=== PATIENT | male | born 1935 | race Caucasian/White ===

== ENCOUNTER 2019-06-05 05:03 | Inpatient (IN) | payer MEDICARE, MEDICAID ==
[~2019-06-05] VITALS: Ht 167.6 cm; Wt 74.5 kg
[2019-06-05] MEDS ORDERED: ONDANSETRON HCL 4 MG/2 ML VIAL IV ONE (06:30)
[2019-06-05 06:38] LABS: Basophils # (auto) 0 10 ^3/uL (0-0.2); Basophils % (auto) 0.5 % (0.0-2.0); Eosinophils # (auto) 0.3 10 ^3/uL (0-0.8); Eosinophils % (auto) 3.9 % (0.0-7.0); Hematocrit 52.1 % (41.0-53.0); Hemoglobin 17.5 g/dL (13.5-17.5); Lymphocytes # (auto) 1.5 10 ^3/uL (0.4-5.4); Lymphocytes % (auto) 16.7 % (10.0-50.0); Mean Corpuscular Hemoglobin 33.5 pg (28.0-32.0); Mean Corpuscular Hgb Conc. 33.6 g/dL (32.0-36.0); Mean Corpuscular Volume 99.7 fL (80.0-100.0); Monocytes # (auto) 0.7 10 ^3/uL (0-1.3); Monocytes % (auto) 8.4 % (0.0-12.0); Neutrophils # (auto) 6.2 10 ^3/uL (1.6-8.6); Neutrophils % (auto) 70.5 % (37.0-80.0); Platelet Count (auto) 281 10^3/uL (140-450); Red Blood Cells 5.23 10^6/uL (4.5-5.90); White Blood Cell 8.8 10^3/uL (4.4-10.8)
[2019-06-05 06:56] LABS: Chloride 105 mmol/L (98-107); Potassium 3.7 mmol/L (3.5-5.1); Sodium 137 mmol/L (136-145)
[2019-06-05 06:59] LABS: Lactic Acid w/Reflex 3.1 mmol/L (0.4-2.0)
[2019-06-05 07:02] LABS: Alanine Aminotransferase 28 U/L (16-61); Albumin 3.9 g/dL (3.4-5.0); Anion Gap 7 (5-15); Aspartate Aminotransferase 17 U/L (15-37); Blood Urea Nitrogen 16 mg/dL (7-18); Carbon Dioxide 25 mmol/L (21-32); GFR African American 92 mL/min; GFR Non-African American 76 mL/min; Glucose 189 mg/dL (74-106); Magnesium 2.5 mg/dL (1.6-2.6)
[2019-06-05 07:07] LABS: Alkaline Phosphatase 81 U/L (45-117); Bilirubin, Total 0.6 mg/dL (0.2-1.0)
[2019-06-05] MEDS ORDERED: PROCHLORPERAZINE EDISYLATE 5 MG/ML 2ML VIAL IV ONE ×2 (07:30→10:30)
[2019-06-05 09:39] LABS: Urine Bacteria NONE SEEN /hpf (None Seen); Urine Blood Negative /uL (Negative); Urine Specific Gravity 1.019 (1.001-1.035); Urine WBC 1 /hpf (0 - 3)
[2019-06-05] MEDS ORDERED: PROCHLORPERAZINE EDISYLATE 5 MG/ML 2ML VIAL ONE (10:02)
[2019-06-05 10:26] LABS: Lactic Acid w/Reflex 2.8 mmol/L (0.4-2.0)
[2019-06-05] MEDS ORDERED: TAMSULOSIN HYDROCHLORIDE 0.4 MG CAP PO ONE (13:00)
[2019-06-05] MEDS ORDERED: MECLIZINE HCL 25 MG TAB PO ONE (13:00)
[2019-06-05] MEDS ORDERED: cefTRIAXone 1GM/50ML D5W 50 ML IV ONE (13:00)
[2019-06-05] MEDS ORDERED: NITROGLYCERIN 0.4 MG SL TAB SL PRN (13:30)
[2019-06-05] MEDS ORDERED: ONDANSETRON HCL 4 MG/2 ML VIAL IV PRN (13:30)
[2019-06-05] MEDS ORDERED: ACETAMINOPHEN 500 MG TAB PO PRN (13:30)
[2019-06-05] MEDS ORDERED: MORPHINE SULF INJ 2 MG/ML SYRINGE 1ML IV PRN ×2 (13:30)
[2019-06-05] MEDS ORDERED: HYDROcodone-ACET 5/325MG TAB PO PRN (13:30)
[2019-06-05] MEDS: SODIUM CHLORIDE 0.9% 1,000 ML IV SCH ×2 (15:30→23:49)
[2019-06-05 16:01] VITALS: BP 143/84
[2019-06-05] MEDS ORDERED: ASCO500T11 PO (16:20)
[2019-06-05] MEDS ORDERED: TURM1TAB PO (16:20)
[2019-06-05] MEDS ORDERED: OMEG100062 PO (16:20)
[2019-06-05] MEDS ORDERED: SELE200T23 OR (16:20)
[2019-06-05] MEDS ORDERED: CHOL20007 PO (16:20)
[2019-06-05] MEDS ORDERED: CARI100T PO (16:20)
[2019-06-05] MEDS ORDERED: KRIL1000 PO (16:20)
[2019-06-05 17:00] VITALS: BP 123/66
[2019-06-05 20:00] VITALS: BP 143/74
[2019-06-06 04:00] VITALS: BP 145/88
[2019-06-06 09:00] VITALS: BP 132/81
[2019-06-06] MEDS: SODIUM CHLORIDE 0.9% 1,000 ML IV SCH ×2 (09:52→14:49)
[2019-06-06] MEDS: FAMOTIDINE 20 MG TAB PO SCH (10:18)
[2019-06-06] MEDS ORDERED: LORazepam 2MG/ML-1ML VIAL IV PRN (11:30)
[2019-06-06 13:47] VITALS: BP 171/90
[2019-06-06 17:30] VITALS: BP 143/90
[2019-06-06 20:00] VITALS: BP 147/99
[2019-06-06] MEDS ORDERED: ATORVASTATIN 20 MG TAB PO SCH (22:00)
[2019-06-07] VITALS: BP 167/93
[2019-06-07] MEDS ORDERED: LABETALOL HCL 5 MG/ML 4ML SYRINGE IV ONE (03:15)
[2019-06-07] MEDS ORDERED: LABETALOL HCL 5 MG/ML ML 20ML VIAL IV ONE (03:24)
[2019-06-07 04:00] VITALS: BP 172/82
[2019-06-07 05:37] LABS: Basophils # (auto) 0 10 ^3/uL (0-0.2); Basophils % (auto) 0.5 % (0.0-2.0); Eosinophils # (auto) 0.1 10 ^3/uL (0-0.8); Eosinophils % (auto) 1.2 % (0.0-7.0); Hematocrit 50.1 % (41.0-53.0); Hemoglobin 17.2 g/dL (13.5-17.5); Lymphocytes # (auto) 1.2 10 ^3/uL (0.4-5.4); Lymphocytes % (auto) 13.6 % (10.0-50.0); Mean Corpuscular Hemoglobin 33.6 pg (28.0-32.0); Mean Corpuscular Hgb Conc. 34.4 g/dL (32.0-36.0); Mean Corpuscular Volume 97.9 fL (80.0-100.0); Monocytes # (auto) 1.4 10 ^3/uL (0-1.3); Monocytes % (auto) 15.4 % (0.0-12.0); Neutrophils # (auto) 6.3 10 ^3/uL (1.6-8.6); Neutrophils % (auto) 69.3 % (37.0-80.0); Platelet Count (auto) 290 10^3/uL (140-450); Red Blood Cells 5.12 10^6/uL (4.5-5.90); Red Cell Distribution Width 12.6 % (11.8-14.3); White Blood Cell 9.1 10^3/uL (4.4-10.8)
[2019-06-07] MEDS ORDERED: hydrALAZINE HCL 20 MG/ML VL IV ONE (06:00)
[2019-06-07 06:02] LABS: Potassium 3.1 mmol/L (3.5-5.1)
[2019-06-07 06:07] LABS: BUN/Creatinine Ratio 12.8; Calcium 8.7 mg/dL (8.5-10.1)
[2019-06-07 06:14] LABS: Cholesterol 204 mg/dL (< 200); HDL Cholesterol 52 mg/dL (40-59); LDL Cholesterol 147 mg/dL (< 100); Triglycerides 103 mg/dL (< 150)
[2019-06-07] MEDS: SODIUM CHLORIDE 0.9% 1,000 ML IV SCH ×2 (08:40→09:28)
[2019-06-07] MEDS ORDERED: HALOPERIDOL LACTATE 5 MG/ML INJ VIAL IM PRN ×2 (08:45)
[2019-06-07] MEDS ORDERED: HALOPERIDOL LACTATE 5 MG/ML INJ VIAL IM ONE (08:45)
[2019-06-07] MEDS ORDERED: CYANOCOBALAMIN (B-12) 1000 MCG/1 ML VIAL IM ONE (08:45)
[2019-06-07] MEDS: FAMOTIDINE 20 MG TAB PO SCH (09:27)
[2019-06-07] MEDS: ALPRAZolam 0.5 MG TAB PO PRN ×2 (09:28→21:11)
[2019-06-07] MEDS ORDERED: POTASSIUM CHL 20 Meq TABLET PO ONE (09:45)
[2019-06-07] MEDS ORDERED: ASPirin 81 mg TAB PO SCH (10:00)
[2019-06-07] MEDS ORDERED: hydrALAZINE HCL 20 MG/ML VL IV PRN (15:30)
[2019-06-07 16:33] LABS: Folate (Folic Acid) > 24.00 ng/mL (5.38-24)
[2019-06-07] MEDS ORDERED: TAMSULOSIN HYDROCHLORIDE 0.4 MG CAP PO ONE (17:45)
[2019-06-07 20:00] VITALS: BP 137/87
[2019-06-07] MEDS: ATORVASTATIN 20 MG TAB PO SCH (21:10)
[2019-06-07] MEDS: METOPROLOL TARTRATE 25 MG TAB PO SCH (21:11)
[2019-06-08] VITALS: BP 148/67
[2019-06-08 07:40] VITALS: BP 153/82
[2019-06-08] MEDS ORDERED: ASPirin-EC 81 mg tab PO SCH (10:00)
[2019-06-08] MEDS: ASPirin 81 mg TAB PO SCH (10:01)
[2019-06-08] MEDS: FAMOTIDINE 20 MG TAB PO SCH (10:02)
[2019-06-08] MEDS: METOPROLOL TARTRATE 25 MG TAB PO SCH ×2 (10:02→21:21)
[2019-06-08] MEDS: CYANOCOBALAMIN 500 MCG TAB PO SCH (10:03)
[2019-06-08 11:40] VITALS: BP 112/67
[2019-06-08 15:40] VITALS: BP 115/64
[2019-06-08] MEDS: TAMSULOSIN HYDROCHLORIDE 0.4 MG CAP PO SCH (18:23)
[2019-06-08 20:00] VITALS: BP 127/72
[2019-06-08] MEDS: ATORVASTATIN 20 MG TAB PO SCH (21:21)
[2019-06-08] MEDS: ALPRAZolam 0.5 MG TAB PO PRN (21:21)
[2019-06-09] VITALS (16 sets, daily range): BP systolic 108–144; BP diastolic 50–99
[2019-06-09 05:54] LABS: Basophils # (auto) 0.1 10 ^3/uL (0-0.2); Basophils % (auto) 0.8 % (0.0-2.0); Eosinophils # (auto) 0.6 10 ^3/uL (0-0.8); Hematocrit 46.9 % (41.0-53.0); Hemoglobin 16.1 g/dL (13.5-17.5); Lymphocytes # (auto) 1.3 10 ^3/uL (0.4-5.4); Lymphocytes % (auto) 16.9 % (10.0-50.0); Mean Corpuscular Hemoglobin 33.7 pg (28.0-32.0); Mean Corpuscular Hgb Conc. 34.3 g/dL (32.0-36.0); Mean Corpuscular Volume 98.3 fL (80.0-100.0); Monocytes % (auto) 13.3 % (0.0-12.0); Neutrophils # (auto) 4.9 10 ^3/uL (1.6-8.6); Nucleated Red Blood Cells % 0.1 %; Platelet Count (auto) 280 10^3/uL (140-450); Red Blood Cells 4.77 10^6/uL (4.5-5.90); White Blood Cell 7.9 10^3/uL (4.4-10.8)
[2019-06-09 06:13] LABS: INR 1.07 (0.9-1.15); Partial Thromboplastin Time 27.4 sec (23.64-32.05)
[2019-06-09 06:14] LABS: Albumin 3.1 g/dL (3.4-5.0); Calcium 8.6 mg/dL (8.5-10.1); Potassium 3.9 mmol/L (3.5-5.1)
[2019-06-09 06:18] LABS: BUN/Creatinine Ratio 23.8; Bilirubin, Total 1.2 mg/dL (0.2-1.0); Total Protein 6.8 g/dL (6.4-8.2)
[2019-06-09] MEDS: METOPROLOL TARTRATE 25 MG TAB PO SCH ×2 (10:00→22:02)
[2019-06-09] MEDS ORDERED: MIDAZOLAM HCL 1MG/1ML-2 ML VIAL IV ONE (11:00)
[2019-06-09] MEDS: CYANOCOBALAMIN 500 MCG TAB PO SCH (15:06)
[2019-06-09] MEDS: ASPirin 81 mg TAB PO SCH (15:06)
[2019-06-09] MEDS: FAMOTIDINE 20 MG TAB PO SCH (15:06)
[2019-06-09] MEDS: TAMSULOSIN HYDROCHLORIDE 0.4 MG CAP PO SCH (18:02)
[2019-06-09] MEDS: ALPRAZolam 0.5 MG TAB PO PRN (22:02)
[2019-06-09] MEDS: ATORVASTATIN 20 MG TAB PO SCH (22:02)
[2019-06-10] VITALS: BP 124/69
[2019-06-10 05:50] VITALS: BP 93/51
[2019-06-10 07:46] LABS: BUN/Creatinine Ratio 22.2; Calcium 8.7 mg/dL (8.5-10.1); Potassium 4.1 mmol/L (3.5-5.1)
[2019-06-10 07:48] LABS: Bilirubin, Total 1.2 mg/dL (0.2-1.0)
[2019-06-10] MEDS: METOPROLOL TARTRATE 25 MG TAB PO SCH (10:27)
[2019-06-10] MEDS: FAMOTIDINE 20 MG TAB PO SCH (10:27)
[2019-06-10] MEDS: CYANOCOBALAMIN 500 MCG TAB PO SCH (10:27)
[2019-06-10] MEDS: ASPirin 81 mg TAB PO SCH (10:27)
[2019-06-10 12:30] VITALS: BP 137/75
[2019-06-10] MEDS ORDERED: ATOR20TA50 PO (12:43)
[2019-06-10] MEDS ORDERED: CYAN500T3 PO (12:43)
[2019-06-10] MEDS ORDERED: ASPI81CH43 PO (12:43)
[2019-06-10] MEDS ORDERED: FAM20T PO (12:43)
[2019-06-10] MEDS ORDERED: TAM04C PO (12:43)
[2019-06-10] MEDS ORDERED: MET25T PO (12:43)
[2019-06-10 14:18] VITALS: BP 150/83
[2019-06-10 17:00] VITALS: BP 124/69
[2019-06-10] MEDS: TAMSULOSIN HYDROCHLORIDE 0.4 MG CAP PO SCH (18:00)
== END 2019-06-10 18:00 | DRG 64 ==
LOC: EDBD 05:03 → ER 05:03 → TELE 05:06 → TELE-EAST 14:44 → ICU CENTRL 06-06 23:58 → DOU IN ICU 06-07 01:55 → TELE-EAST 06-10 02:17
PROVIDERS: ADMIT Nurse Practitioner Acute Care; ATTEND Internal Medicine
PROC: B246ZZ4 Ultrasonography of Right and Left Heart, Transesophageal (ICD-10-PCS; principal; 2019-06-09)
DX: I63.9 Cerebral infarction, unspecified (principal); G93.41 Metabolic encephalopathy; E87.2 Acidosis; G91.2 (Idiopathic) normal pressure hydrocephalus; N13.8 Other obstructive and reflux uropathy; K57.90 Diverticulosis of intestine, part unspecified, without perforation or abscess without bleeding; K52.9 Noninfective gastroenteritis and colitis, unspecified; N20.0 Calculus of kidney; R73.9 Hyperglycemia, unspecified; J32.4 Chronic pansinusitis; K40.20 Bilateral inguinal hernia, without obstruction or gangrene, not specified as recurrent; T68.XXXA Hypothermia, initial encounter; N40.1 Benign prostatic hyperplasia with lower urinary tract symptoms; E53.8 Deficiency of other specified B group vitamins; E78.5 Hyperlipidemia, unspecified; R33.8 Other retention of urine; F17.200 Nicotine dependence, unspecified, uncomplicated; G30.9 Alzheimer's disease, unspecified; F02.80 Dementia in other diseases classified elsewhere, unspecified severity, without behavioral disturbance, psychotic disturbance, mood disturbance, and anxiety; I10 Essential (primary) hypertension; Z79.899 Other long term (current) drug therapy; Z80.0 Family history of malignant neoplasm of digestive organs; Z86.73 Personal history of transient ischemic attack (TIA), and cerebral infarction without residual deficits; Z90.49 Acquired absence of other specified parts of digestive tract
CPT/HCPCS: 36415; 70450; 70551; 71045; 72125; 74176; 80048; 80053; 80061; 81001; 82247; 82607; 82746; 83036; 83605; 83690; 83735; 84132; 84154; 84443; 84484; 85025; 85610; 85652; 85730; 86141; 87040; 87804; 93005; 93306; 93312; 93886; 96361; 96365; 96375; 97163; G0378; J0696; J2250; J2405

== ENCOUNTER 2019-07-27 06:38 | Inpatient (IN) | payer MEDICARE, MEDICAID ==
[~2019-07-27] VITALS: Ht 167.6 cm; Wt 82.8 kg
[~2019-07-27 06:38] MED LIST: ASCO500T11 PO; ASPI81CH43 PO; ATOR20TA50 PO; CARI100T PO; CHOL20007 PO; CYAN500T3 PO; FAMO20TA10 PO; KRIL1000 PO; MET25T PO; OMEG100062 PO; SELE200T23 OR; TAM04C PO; TURM1TAB PO
[2019-07-27] MEDS ORDERED: SODIUM CHLORIDE 0.9% 1,000 ML IV ONE (06:58)
[2019-07-27] MEDS ORDERED: METOPROLOL TARTRATE 1MG/1ML-5ML VIAL IV ONE (07:00)
[2019-07-27] MEDS ORDERED: ASPirin 81 mg TAB PO ONE ×2 (07:00→10:30)
[2019-07-27 07:25] LABS: Basophils # (auto) 0 10 ^3/uL (0-0.2); Basophils % (auto) 0.3 % (0.0-2.0); Eosinophils # (auto) 0.1 10 ^3/uL (0-0.8); Eosinophils % (auto) 0.7 % (0.0-7.0); Hematocrit 51.1 % (41.0-53.0); Hemoglobin 17.2 g/dL (13.5-17.5); Lymphocytes # (auto) 0.8 10 ^3/uL (0.4-5.4); Lymphocytes % (auto) 6.5 % (10.0-50.0); Mean Corpuscular Hgb Conc. 33.6 g/dL (32.0-36.0); Mean Corpuscular Volume 98.1 fL (80.0-100.0); Monocytes # (auto) 1.2 10 ^3/uL (0-1.3); Monocytes % (auto) 9.3 % (0.0-12.0); Neutrophils # (auto) 10.5 10 ^3/uL (1.6-8.6); Neutrophils % (auto) 83.2 % (37.0-80.0); Nucleated Red Blood Cells % 0.1 %; Platelet Count (auto) 301 10^3/uL (140-450); Red Blood Cells 5.21 10^6/uL (4.5-5.90); White Blood Cell 12.6 10^3/uL (4.4-10.8)
[2019-07-27 07:26] LABS: Albumin 3.8 g/dL (3.4-5.0); Calcium 8.8 mg/dL (8.5-10.1); Magnesium 2.2 mg/dL (1.6-2.6); Potassium 3.6 mmol/L (3.5-5.1)
[2019-07-27 07:33] LABS: BUN/Creatinine Ratio 13.4; Bilirubin, Total 1.3 mg/dL (0.2-1.0); Total Protein 8.5 g/dL (6.4-8.2)
[2019-07-27 07:35] LABS: Urine Bacteria FEW /hpf (None Seen); Urine Blood 3+ /uL (Negative); Urine Specific Gravity 1.012 (1.001-1.035); Urine WBC 199 /hpf (0 - 3)
[2019-07-27 07:47] LABS: INR 1.01 (0.9-1.15); Partial Thromboplastin Time 25.6 sec (23.64-32.05)
[2019-07-27] MEDS ORDERED: cefTRIAXone 1GM/50ML D5W 50 ML IV ONE (10:30)
[2019-07-27] MEDS ORDERED: NITROGLYCERIN 0.4 MG SL TAB SL PRN (11:00)
[2019-07-27] MEDS ORDERED: hydrALAZINE HCL 20 MG/ML VL IV PRN (11:00)
[2019-07-27] MEDS ORDERED: MORPHINE SULF INJ 2 MG/ML SYRINGE 1ML IV PRN ×2 (11:00)
[2019-07-27] MEDS ORDERED: HEPARIN SODIUM (PORCINE) 5000 UNITS/ML 1ML VIAL IV ONE (11:00)
[2019-07-27] MEDS ORDERED: HYDROcodone-ACET 5/325MG TAB PO PRN (11:00)
[2019-07-27] MEDS ORDERED: ONDANSETRON HCL 4 MG/2 ML VIAL IV PRN ×2 (11:00→14:45)
[2019-07-27] MEDS ORDERED: ACETAMINOPHEN 500 MG TAB PO PRN (11:00)
[2019-07-27] MEDS ORDERED: NITROGLYCERIN 0.4MG/HR TOPICAL PATCH TD ONE (11:00)
[2019-07-27 12:23] LABS: CRP High Sensitivity 0.38 mg/dL (< 0.3)
[2019-07-27] MEDS ORDERED: LIDOCAINE 2%HCL (LOCAL ANESTH.) INJ 20ML MDV ONE ×2 (12:27→13:17)
[2019-07-27] MEDS ORDERED: IOHEXOL 350 MG/ML 100ML IJ ONE ×3 (12:27→13:49)
[2019-07-27] MEDS ORDERED: ANGIOMAX 250 MG VIAL IV ONE (13:28)
[2019-07-27] MEDS ORDERED: SODIUM CHL 0.9% 50 ML ONE (13:28)
[2019-07-27] MEDS ORDERED: MIDAZOLAM HCL 1MG/1ML-2 ML VIAL ONE (13:28)
[2019-07-27] MEDS ORDERED: fentaNYL CITRATE 100 MCG/2 ML VL ONE (13:28)
[2019-07-27] MEDS ORDERED: NITROGLYCERIN 0.4MG/DOSE SPRAY 4.9GM ONE (13:59)
[2019-07-27] MEDS ORDERED: TICAGRELOR 90 MG TAB ONE (14:10)
[2019-07-27] MEDS ORDERED: ASPirin 81 mg TAB ONE (14:29)
[2019-07-27] MEDS ORDERED: SODIUM CHL 0.9% 500 ML IV ONE (14:45)
--- NOTE | 2019-07-27 16:20 | NUR ---
VS on arrival BP 123/73, HR, 88, RR 20, spo2 94%. No s/s of distress/sob noted/stated. Will continue to monitor PRN. Per Pantry Chef RN patient to stay laying flat until 1720, patient instructed/aware.
--- NOTE | 2019-07-27 16:22 | NUR ---
Report received from Tanesha ANTUNEZ. BRENTON LOWE brought to bed 219B following Cardiac catheterization, on cardiac rehabilitation specialist and portable oxygen. Patient transferred to unit bed, connected to glass mould cleaner #43 and oxygen. Catheterization site assessed for any bleeding, redness or swelling. Pedal pulses on affected leg assessed for positive tissue perfusion. Patient instructed on need to notify staff immediately if any pain, burning or wetness to site, and any lower back pain. Patient educated on new cardiac medications. All questions and concerns addressed, patient verbalized understanding of all education and instruction. See notes for any further.
--- NOTE | 2019-07-27 17:20 | NUR ---
Patient able to sit up in bed. No c/o pain. No s/s of distress/sob noted/stated.
[2019-07-27] MEDS: TAMSULOSIN HYDROCHLORIDE 0.4 MG CAP PO SCH (18:03)
--- NOTE | 2019-07-27 19:40 | NUR ---
Opening Shift Note Assumed care of patient, awake, AAOx4, No S/S of distress/SOB or pain. On room air and ambulatory. Bed in lowest locked position, side rails up x2, call light within reach. Instructed on POC and to call for assist PRN, will continue to monitor for changes Q1hr and PRN.
[2019-07-27 20:00] VITALS: BP 131/80
[2019-07-27 21:51] VITALS: BP 131/80
[2019-07-27] MEDS: TICAGRELOR 90 MG TAB PO SCH (21:54)
[2019-07-27] MEDS: ATORVASTATIN 20 MG TAB PO SCH (21:56)
[2019-07-27] MEDS: METOPROLOL TARTRATE 25 MG TAB PO SCH (21:56)
[2019-07-28 05:00] VITALS: BP 104/71
[2019-07-28 05:54] LABS: Basophils # (auto) 0 10 ^3/uL (0-0.2); Basophils % (auto) 0.3 % (0.0-2.0); Eosinophils # (auto) 0.1 10 ^3/uL (0-0.8); Eosinophils % (auto) 0.6 % (0.0-7.0); Hematocrit 45.2 % (41.0-53.0); Hemoglobin 15.3 g/dL (13.5-17.5); Lymphocytes # (auto) 1.1 10 ^3/uL (0.4-5.4); Lymphocytes % (auto) 11.7 % (10.0-50.0); Mean Corpuscular Hemoglobin 33.2 pg (28.0-32.0); Mean Corpuscular Hgb Conc. 33.9 g/dL (32.0-36.0); Mean Corpuscular Volume 97.9 fL (80.0-100.0); Monocytes # (auto) 1.7 10 ^3/uL (0-1.3); Monocytes % (auto) 17.5 % (0.0-12.0); Neutrophils # (auto) 6.7 10 ^3/uL (1.6-8.6); Neutrophils % (auto) 69.9 % (37.0-80.0); Nucleated Red Blood Cells % 0.1 %; Platelet Count (auto) 290 10^3/uL (140-450); Red Blood Cells 4.62 10^6/uL (4.5-5.90); Red Cell Distribution Width 13.3 % (11.8-14.3); White Blood Cell 9.6 10^3/uL (4.4-10.8)
[2019-07-28 06:07] LABS: INR 1.14 (0.9-1.15); Partial Thromboplastin Time 29.2 sec (23.64-32.05)
[2019-07-28 06:09] LABS: Potassium 3.2 mmol/L (3.5-5.1)
[2019-07-28 06:20] LABS: Bilirubin, Total 1.7 mg/dL (0.2-1.0); Calcium 8.4 mg/dL (8.5-10.1); Total Protein 6.8 g/dL (6.4-8.2)
--- NOTE | 2019-07-28 07:45 | NUR ---
OPENING NOTE ASSUMED CARE OF PT. ALERT AND ORIENTED. NO S/S OF SOB/DISTRESS NOTED. BED SET TO LOWEST POSITION/LOCKED. BEDSIDE RAILS UP X2. CALL LIGHT WITHIN REACH. INSTRUCTED PT TO CALL FOR ASSISTANCE. PATIENT VERBALIZED UNDERSTANDING. UPDATE ON POC. WILL CONTINUE TO MONITOR Q1HR AND PRN.
[2019-07-28 09:00] VITALS: BP 133/73
[2019-07-28] MEDS: LISINOPRIL 10 MG TAB PO SCH (09:33)
[2019-07-28] MEDS: FAMOTIDINE 20 MG TAB PO SCH (09:34)
[2019-07-28] MEDS: TICAGRELOR 90 MG TAB PO SCH ×2 (09:34→23:11)
[2019-07-28] MEDS: METOPROLOL TARTRATE 25 MG TAB PO SCH ×2 (09:34→23:11)
[2019-07-28] MEDS: ASPirin-EC 81 mg tab PO SCH (09:34)
[2019-07-28] MEDS: NITROGLYCERIN 0.4MG/HR TOPICAL PATCH TD SCH (09:36)
[2019-07-28] MEDS ORDERED: cefTRIAXone 1GM/50ML D5W 50 ML IV ONE (12:15)
[2019-07-28 13:00] VITALS: BP 123/75
--- NOTE | 2019-07-28 14:13 | NUR ---
Patient is refusing IV insertion. Patient stated "you are not poking me, look at my arms." This nurse educated patient on the risk and benefit. Patient verbalized understanding. Patient is still refusing. This nurse will attempt again at later time.
--- NOTE | 2019-07-28 14:47 | NUR ---
IV insertion IV access obtained, via clean sterile technique by inserting 22 gauge catheter at right FA after 1 attempt(s). IV secured properly. No trauma to site. Patient tolerated well.
[2019-07-28 17:00] VITALS: BP 108/68
[2019-07-28] MEDS: TAMSULOSIN HYDROCHLORIDE 0.4 MG CAP PO SCH (18:45)
--- NOTE | 2019-07-28 19:20 | NUR ---
Opening Shift Note Assumed care of patient, awake and alert. No S/S of distress/SOB or pain. Machado intact, patent, draining to gravity and below level of bladder. Instructed on POC and to call for assist PRN, will continue to monitor for changes Q1hr and PRN. Bed locked in lowest position and bed rails up x2. Call light within reach.
[2019-07-28 21:52] VITALS: BP 114/66
[2019-07-28] MEDS: ATORVASTATIN 20 MG TAB PO SCH (23:11)
--- NOTE | 2019-07-28 23:30 | NUR ---
Received patient from Monserrat ANTUNEZ Patient is resting in bed asleep. Machado is hung below bladder and draining yellow urine. Call light is within reach. Will continue to monitor.
[2019-07-29 05:16] VITALS: BP 120/69
--- NOTE | 2019-07-29 07:12 | NUR ---
OPENING SHIFT NOTE Assumed care of patient from douper RN. Patient is alert and oriented x4, no signs of distress noted. Patient denies pain. Patient was updated on the plan of care and verbalized understanding. Machado noted draining clear yellow urine to gravity, bag is hung below bladder level, no loops or kinks in the tubing. Bed is locked, in the lowest position, side rails up x2 and call light is in reach. Patient was encouraged to call for assistance as needed.
[2019-07-29 08:30] VITALS: BP 114/65
[2019-07-29] MEDS ORDERED: cefTRIAXone 1GM/50ML D5W 50 ML IV SCH (09:00)
--- NOTE | 2019-07-29 09:38 | NUR ---
KARIS AT BEDSIDE Updated on patient status, plan of care discussed with patient and he verbalized understanding.
[2019-07-29] MEDS: NITROGLYCERIN 0.4MG/HR TOPICAL PATCH TD SCH (10:00)
[2019-07-29] MEDS: METOPROLOL TARTRATE 25 MG TAB PO SCH (10:07)
[2019-07-29] MEDS: ASPirin-EC 81 mg tab PO SCH (10:07)
[2019-07-29] MEDS: FAMOTIDINE 20 MG TAB PO SCH (10:07)
[2019-07-29] MEDS: LISINOPRIL 10 MG TAB PO SCH (10:08)
[2019-07-29] MEDS: TICAGRELOR 90 MG TAB PO SCH (10:10)
[2019-07-29 12:04] VITALS: BP 116/65
--- NOTE | 2019-07-29 14:00 | NUR ---
DISCHARGE Discharge instructions given as ordered. Encourage to follow up with PMD as instructed. All questions and concerns addressed. Patient verbalized understanding. Medication reconciliation form completed and copy given to patient. IV removed with catheter intact, pressure dressing applied. Telemetry unit returned to ICU. Patient wheeled himself down to the lobby, refused help. no signs of distress noted.
== END 2019-07-29 14:00 | disposition home or self-care (01) | DRG 853 ==
LOC: EDBD 06:38 → ER 06:38 → TELE 06:39 → TELE-CENTR 16:16
PROVIDERS: ADMIT Nurse Practitioner Acute Care; ATTEND Family Medicine
PROC: B2111ZZ Fluoroscopy of Multiple Coronary Arteries using Low Osmolar Contrast (ICD-10-PCS; principal; 2019-07-27)
PROC: 027035Z Dilation of Coronary Artery, One Artery with Two Drug-eluting Intraluminal Devices, Percutaneous Approach (ICD-10-PCS; 2019-07-27)
PROC: 4A023N7 Measurement of Cardiac Sampling and Pressure, Left Heart, Percutaneous Approach (ICD-10-PCS; 2019-07-27)
PROC: B2151ZZ Fluoroscopy of Left Heart using Low Osmolar Contrast (ICD-10-PCS; 2019-07-27)
DX: A41.9 Sepsis, unspecified organism (principal); I21.4 Non-ST elevation (NSTEMI) myocardial infarction; E87.1 Hypo-osmolality and hyponatremia; N30.00 Acute cystitis without hematuria; N18.3 Chronic kidney disease, stage 3 (moderate); E11.22 Type 2 diabetes mellitus with diabetic chronic kidney disease; E78.5 Hyperlipidemia, unspecified; F03.90 Unspecified dementia, unspecified severity, without behavioral disturbance, psychotic disturbance, mood disturbance, and anxiety; I12.9 Hypertensive chronic kidney disease with stage 1 through stage 4 chronic kidney disease, or unspecified chronic kidney disease; I25.10 Atherosclerotic heart disease of native coronary artery without angina pectoris; K40.90 Unilateral inguinal hernia, without obstruction or gangrene, not specified as recurrent; K57.30 Diverticulosis of large intestine without perforation or abscess without bleeding; K21.9 Gastro-esophageal reflux disease without esophagitis; E78.00 Pure hypercholesterolemia, unspecified; E66.9 Obesity, unspecified; B95.1 Streptococcus, group B, as the cause of diseases classified elsewhere; R33.8 Other retention of urine; N40.1 Benign prostatic hyperplasia with lower urinary tract symptoms; Z68.30 Body mass index [BMI] 30.0-30.9, adult; Z79.82 Long term (current) use of aspirin; Z79.899 Other long term (current) drug therapy; Z80.0 Family history of malignant neoplasm of digestive organs; Z87.891 Personal history of nicotine dependence; Z90.49 Acquired absence of other specified parts of digestive tract; Z91.19 Patient's noncompliance with other medical treatment and regimen; Z95.5 Presence of coronary angioplasty implant and graft
CPT/HCPCS: 36415; 71045; 74176; 80053; 80061; 81001; 83735; 83880; 84154; 84443; 84484; 85025; 85610; 85730; 86141; 87040; 87086; 87088; 87186; 92928; 92929; 93005; 93458; 96361; 96365; 96367; 99152; 99153; C1874; G0378; J0696; J2250

== ENCOUNTER 2019-08-08 03:35 | Inpatient (IN) | payer MEDICARE, MEDICAID ==
[~2019-08-08] VITALS: Ht 170.2 cm; Wt 72.6 kg
[~2019-08-08 03:35] MED LIST changes: +FAM20T PO; -FAMO20TA10 PO
[2019-08-08] MEDS ORDERED: HYDROmorphone HCL 2 MG/ML VL IV ONE (04:30)
[2019-08-08] MEDS ORDERED: ONDANSETRON HCL 4 MG/2 ML VIAL IV ONE (04:30)
[2019-08-08 05:12] LABS: Urine Amorphous Crystal FEW /hpf (None Seen); Urine Bacteria FEW /hpf (None Seen); Urine Blood 3+ /uL (Negative); Urine Mucus FEW (None Seen); Urine Specific Gravity 1.007 (1.001-1.035); Urine WBC 4 /hpf (0 - 3)
[2019-08-08 06:01] LABS: Basophils # (auto) 0 10 ^3/uL (0-0.2); Basophils % (auto) 0.3 % (0.0-2.0); Eosinophils # (auto) 0.1 10 ^3/uL (0-0.8); Eosinophils % (auto) 1.3 % (0.0-7.0); Hemoglobin 16.2 g/dL (13.5-17.5); Lymphocytes # (auto) 0.7 10 ^3/uL (0.4-5.4); Lymphocytes % (auto) 5.9 % (10.0-50.0); Mean Corpuscular Hemoglobin 33.7 pg (28.0-32.0); Mean Corpuscular Hgb Conc. 34.4 g/dL (32.0-36.0); Mean Corpuscular Volume 97.9 fL (80.0-100.0); Monocytes % (auto) 8.3 % (0.0-12.0); Neutrophils % (auto) 84.2 % (37.0-80.0); Nucleated Red Blood Cells % 0.2 %; Platelet Count (auto) 328 10^3/uL (140-450); Red Cell Distribution Width 13.1 % (11.8-14.3); White Blood Cell 11.9 10^3/uL (4.4-10.8)
[2019-08-08 06:09] LABS: INR 1.06 (0.9-1.15); Partial Thromboplastin Time 26.6 sec (23.64-32.05)
[2019-08-08 06:27] LABS: Potassium 3.4 mmol/L (3.5-5.1)
[2019-08-08 06:48] LABS: Albumin 3.5 g/dL (3.4-5.0); BUN/Creatinine Ratio 15.5; Calcium 8.7 mg/dL (8.5-10.1); Total Protein 7.6 g/dL (6.4-8.2)
[2019-08-08] MEDS ORDERED: ONDANSETRON HCL 4 MG/2 ML VIAL IV PRN (07:30)
[2019-08-08] MEDS ORDERED: MORPHINE SULFATE 4 MG/ML SYR/VIAL IV PRN (07:30)
[2019-08-08] MEDS ORDERED: DOCUSATE SOD 100 MG CAP PO PRN (07:30)
[2019-08-08] MEDS ORDERED: ACETAMINOPHEN 325 MG TAB PO PRN (07:30)
[2019-08-08] MEDS ORDERED: HYDROcodone-ACET 5/325MG TAB PO PRN (07:30)
[2019-08-08] MEDS ORDERED: ASCORBIC ACID 500 MG TAB PO SCH (10:00)
[2019-08-08] MEDS ORDERED: FAMOTIDINE 20 MG TAB PO SCH (10:00)
[2019-08-08] MEDS ORDERED: CYANOCOBALAMIN 500 MCG TAB PO SCH (10:00)
[2019-08-08] MEDS ORDERED: METOPROLOL TARTRATE 25 MG TAB PO SCH (10:00)
[2019-08-08] MEDS ORDERED: CEPHALEXIN 250 MG CAP PO ONE (10:15)
[2019-08-08 10:19] VITALS: BP 137/80
[2019-08-08] MEDS ORDERED: TAMSULOSIN HYDROCHLORIDE 0.4 MG CAP PO SCH (18:00)
[2019-08-08] MEDS ORDERED: ATORVASTATIN 20 MG TAB PO SCH (22:00)
== END 2019-08-08 17:01 | disposition home or self-care (01) | DRG 696 ==
LOC: EDBD 03:35 → ER 03:40 → OVERFLOW 03:41
PROVIDERS: ADMIT Hospitalist; ATTEND Hospitalist
DX: R33.9 Retention of urine, unspecified (principal); K40.30 Unilateral inguinal hernia, with obstruction, without gangrene, not specified as recurrent; I10 Essential (primary) hypertension; I25.10 Atherosclerotic heart disease of native coronary artery without angina pectoris; E78.5 Hyperlipidemia, unspecified; K21.9 Gastro-esophageal reflux disease without esophagitis; Z90.49 Acquired absence of other specified parts of digestive tract; Z95.1 Presence of aortocoronary bypass graft; Z79.899 Other long term (current) drug therapy; Z79.82 Long term (current) use of aspirin; Z80.0 Family history of malignant neoplasm of digestive organs; Z80.41 Family history of malignant neoplasm of ovary
CPT/HCPCS: 36415; 71045; 71250; 74176; 80053; 81001; 83880; 84484; 85025; 85610; 85730; 93005; G0378; J2405

== ENCOUNTER 2019-08-08 16:14 | Emergency (ER) | payer MEDICARE, MEDICAID ==
[~2019-08-08] VITALS: Ht 167.6 cm; Wt 81.6 kg
[2019-08-08 16:27] VITALS: BP 143/86
== END 2019-08-08 17:01 | disposition home or self-care (01) ==
LOC: ER 16:14
DX: T83.098A Other mechanical complication of other urinary catheter, initial encounter (principal); N40.0 Benign prostatic hyperplasia without lower urinary tract symptoms
CPT/HCPCS: 51702

== ENCOUNTER → 2019-08-20 | Emergency (ER) | payer MEDICARE, MEDICAID ==
[~2019-08-20] VITALS: Ht 167.6 cm; Wt 79.4 kg
[2019-08-20 17:57] LABS: Urine Amorphous Crystal FEW /hpf (None Seen); Urine Bacteria NONE SEEN /hpf (None Seen); Urine Blood 3+ /uL (Negative); Urine Mucus FEW (None Seen); Urine Specific Gravity 1.006 (1.001-1.035); Urine WBC 8 /hpf (0 - 3)
[2019-08-20 20:01] VITALS: BP 137/79
== END | disposition home or self-care (01) ==
LOC: ER 16:32
DX: T83.091A Other mechanical complication of indwelling urethral catheter, initial encounter (principal); N39.0 Urinary tract infection, site not specified; I10 Essential (primary) hypertension; K21.9 Gastro-esophageal reflux disease without esophagitis; I25.10 Atherosclerotic heart disease of native coronary artery without angina pectoris; E78.5 Hyperlipidemia, unspecified; Z90.49 Acquired absence of other specified parts of digestive tract; Z79.82 Long term (current) use of aspirin; Z79.899 Other long term (current) drug therapy
CPT/HCPCS: 81001

== ENCOUNTER 2019-08-21 16:06 | Emergency (ER) | payer MEDICARE, MEDICAID ==
[~2019-08-21 16:06] MED LIST changes: -FAM20T PO; +FAMO20TA10 PO
[2019-08-21 18:49] VITALS: BP 140/82
== END 2019-08-21 19:40 | disposition home or self-care (01) ==
LOC: ER 16:06
DX: T83.018D Breakdown (mechanical) of other urinary catheter, subsequent encounter (principal); K21.9 Gastro-esophageal reflux disease without esophagitis; E78.5 Hyperlipidemia, unspecified; I10 Essential (primary) hypertension; Z90.49 Acquired absence of other specified parts of digestive tract; Z98.61 Coronary angioplasty status
CPT/HCPCS: 51702

== ENCOUNTER 2019-08-22 20:45 | Inpatient (IN) | payer MEDICARE, MEDICAID ==
[~2019-08-22] VITALS: Ht 165.1 cm; Wt 86.0 kg
[2019-08-22] MEDS ORDERED: cefTRIAXone 1GM/50ML D5W 50 ML IV ONE (22:30)
[2019-08-22 23:08] LABS: Basophils # (auto) 0.1 10 ^3/uL (0-0.2); Eosinophils # (auto) 0.7 10 ^3/uL (0-0.8); Eosinophils % (auto) 9.3 % (0.0-7.0); Hematocrit 43.3 % (41.0-53.0); Hemoglobin 14.5 g/dL (13.5-17.5); Lymphocytes # (auto) 1.4 10 ^3/uL (0.4-5.4); Lymphocytes % (auto) 18.4 % (10.0-50.0); Mean Corpuscular Hemoglobin 32.9 pg (28.0-32.0); Mean Corpuscular Hgb Conc. 33.4 g/dL (32.0-36.0); Mean Corpuscular Volume 98.3 fL (80.0-100.0); Monocytes # (auto) 1.2 10 ^3/uL (0-1.3); Monocytes % (auto) 15.4 % (0.0-12.0); Neutrophils # (auto) 4.4 10 ^3/uL (1.6-8.6); Neutrophils % (auto) 55.9 % (37.0-80.0); Platelet Count (auto) 293 10^3/uL (140-450); Red Cell Distribution Width 13.5 % (11.8-14.3); White Blood Cell 7.8 10^3/uL (4.4-10.8)
[2019-08-22 23:27] LABS: Albumin 3.2 g/dL (3.4-5.0); BUN/Creatinine Ratio 15.8; Calcium 8.2 mg/dL (8.5-10.1); Potassium 3.3 mmol/L (3.5-5.1)
[2019-08-22 23:30] LABS: Total Protein 7.1 g/dL (6.4-8.2)
[2019-08-23 01:06] LABS: Urine Amorphous Crystal FEW /hpf (None Seen); Urine Bacteria FEW /hpf (None Seen); Urine Blood 3+ /uL (Negative); Urine Hyaline Cast FEW /lpf (0 - 2); Urine Mucus FEW (None Seen); Urine Specific Gravity 1.006 (1.001-1.035); Urine WBC 18 /hpf (0 - 3)
[2019-08-23] MEDS ORDERED: MORPHINE SULF INJ 2 MG/ML SYRINGE 1ML IV PRN (02:00)
[2019-08-23] MEDS ORDERED: DOCUSATE SOD 100 MG CAP PO PRN (02:00)
[2019-08-23] MEDS ORDERED: HYDROcodone-ACET 5/325MG TAB PO PRN (02:00)
[2019-08-23] MEDS ORDERED: ACETAMINOPHEN 325 MG TAB PO PRN (02:00)
[2019-08-23] MEDS ORDERED: ONDANSETRON HCL 4 MG/2 ML VIAL IV PRN (02:00)
[2019-08-23] MEDS: SODIUM CHLORIDE 0.9% 1,000 ML IV SCH ×2 (02:43→17:09)
--- NOTE | 2019-08-23 03:30 | NUR ---
MS admit from ER BRENTON LOWE admitted to Med-Surg after SBAR received. Patient oriented to primary RN, unit, room, bed, and unit policies regarding patient care and visiting hours. Patient weighed by bedscale and encouraged to call if they need something. All questions and concerns addressed, patient verbalized understanding. Bed locked in lowest position and bed rails up x2. Call light within reach with wheelchair at bedside.
[2019-08-23 05:00] VITALS: BP 158/84
[2019-08-23 05:05] LABS: Basophils # (auto) 0.1 10 ^3/uL (0-0.2); Basophils % (auto) 0.9 % (0.0-2.0); Eosinophils # (auto) 0.1 10 ^3/uL (0-0.8); Eosinophils % (auto) 2.1 % (0.0-7.0); Hematocrit 46.7 % (41.0-53.0); Lymphocytes # (auto) 0.7 10 ^3/uL (0.4-5.4); Lymphocytes % (auto) 10.9 % (10.0-50.0); Mean Corpuscular Hemoglobin 32.8 pg (28.0-32.0); Mean Corpuscular Hgb Conc. 34.2 g/dL (32.0-36.0); Mean Corpuscular Volume 95.9 fL (80.0-100.0); Monocytes # (auto) 0.7 10 ^3/uL (0-1.3); Monocytes % (auto) 10.5 % (0.0-12.0); Neutrophils % (auto) 75.6 % (37.0-80.0); Nucleated Red Blood Cells % 0.1 %; Platelet Count (auto) 159 10^3/uL (140-450); Red Blood Cells 4.87 10^6/uL (4.5-5.90); Red Cell Distribution Width 14.4 % (11.8-14.3); White Blood Cell 6.6 10^3/uL (4.4-10.8)
[2019-08-23 05:28] LABS: BUN/Creatinine Ratio 18.8; Calcium 8.3 mg/dL (8.5-10.1); Potassium 3.9 mmol/L (3.5-5.1)
[2019-08-23 08:00] VITALS: BP 143/84
[2019-08-23 08:36] VITALS: BP 143/84
[2019-08-23] MEDS ORDERED: CHOLECALCIFEROL (VITD3) 1,000UNIT=25mCg TAB PO SCH (10:00)
[2019-08-23] MEDS ORDERED: ASCORBIC ACID 500 MG TAB PO SCH (10:00)
[2019-08-23] MEDS ORDERED: CYANOCOBALAMIN 500 MCG TAB PO SCH (10:00)
[2019-08-23] MEDS ORDERED: cefTRIAXone 1GM/50ML D5W 50 ML IV SCH (10:00)
[2019-08-23] MEDS ORDERED: METOPROLOL TARTRATE 25 MG TAB PO SCH (10:00)
[2019-08-23] MEDS ORDERED: ASPirin 81 mg TAB PO SCH (10:00)
[2019-08-23] MEDS ORDERED: FAMOTIDINE 20 MG TAB PO SCH (10:00)
[2019-08-23] MEDS ORDERED: PATIENTS OWN MEDICATION (Cholecalciferol (Vitamin D3) 1 TAB) PO SCH (10:00)
--- NOTE | 2019-08-23 11:27 | NUR ---
DR. GRIFFITH AT BEDSIDE. POC DISCUSSED WITH PT. NEW ORDER SURGICAL CONSULT WITH DR. SLAUGHTER FOR LARGE ABD HERNIA. WILL CARRY OUT ORDER.
[2019-08-23 13:00] VITALS: BP 159/94
--- NOTE | 2019-08-23 16:27 | NUR ---
PT B/P 173/97 HR 93, DR. CORTES MADE AWARE. NEW ORDER OBTAINED: METOPROLOL 25MG PO ONCE. WILL CARRY OUT ORDER.
[2019-08-23] MEDS ORDERED: METOPROLOL TARTRATE 25 MG TAB PO ONE (16:30)
[2019-08-23 16:39] VITALS: BP 172/97
[2019-08-23] MEDS ORDERED: TAMSULOSIN HYDROCHLORIDE 0.4 MG CAP PO SCH (18:00)
--- NOTE | 2019-08-23 19:20 | NUR ---
OPENING NOTE I WAS RECEIVING REPORT, PATIENT WAS WALKING AROUND THE UNIT ASKING TO BE DISCONNECTED FROM IV. RN WALKED THE PATIENT TO HIS ROOM AND WAS DISCONNECTED.
--- NOTE | 2019-08-23 19:30 | NUR ---
SECURITY WAS CALLED BECAUSE PATIENT WAS WALKING TO THE ELEVATOR WITH HIS WHEEL CHAIR SAYING HE WAS DONE HERE. I ASKED THE PATIENT TO PLEASE STEP OUT OF ELEVATOR BECAUSE WE DON'T HAVE A DISCHARGE ORDER, PATIENT PULLED HIS IV CATHETER FROM HIS LEFT AC, HANDED IT TO ME AND I ASKED THE PATIENT TO PLEASE PLACE IT IN THE DESIGNATED TRASH CONTAINER INSIDE HIS ROOM. PATIENT BECAME VERY AGITATED AND WAS TALKING VERY CLOSE TO MY FACE, SECURITY AND I ASKED HIS TO PLEASE KEEP A DISTANCE. CALLED HIS TO SEE IF THIS WOULD DECREASE PATIENT'S ANXIETY. EXPLAINED THE SITUATION TO THE , NOW HIS IS IN HIS ROOM ON THE PHONE.
--- NOTE | 2019-08-23 21:05 | NUR ---
Patient was in nurse station [facility], patient was asked to return to his room, he still very hostile and verbally abusive. Called his daughter and she will pick him up. Explained to daughter Daphney that patient still needs to see surgeon and urologist to address the hernia and urinary retention. Patient will be sent home with the Machado catheter.
--- NOTE | 2019-08-23 21:22 | NUR ---
Patient signed the AMA form, Daphney his daughter was waiting by the ER parking lot. I took the patient to the ER in his own wheel chair, vp security accompanied us. We waited until the patient was sitting inside the car and secured. His daughter put his wheel chair inside the trunk of her car and that is when we left and walked back inside the hospital. Patient was alert, waling with steady gate, no SOB or distress.
--- NOTE | 2019-08-23 21:29 | NUR ---
Dr Hogan was notified.
[2019-08-23] MEDS ORDERED: ATORVASTATIN 20 MG TAB PO SCH (22:00)
[2019-08-23] MEDS ORDERED: TICAGRELOR 90 MG TAB PO SCH (22:00)
[2019-08-24] MEDS ORDERED: LEVOTHYROXINE SODIUM 25 MCG TAB PO SCH (07:00)
[2019-08-24] MEDS ORDERED: TAMSULOSIN HYDROCHLORIDE 0.4 MG CAP PO SCH (18:00)
[2019-08-31] MEDS ORDERED: TICA90TA PO ×2 (13:37)
[2019-09-08] MEDS ORDERED: METO25TA5 PO ×2 (18:48)
[2019-09-08] MEDS ORDERED: LEVO25TA49 PO ×2 (18:48)
[2019-09-08] MEDS ORDERED: TICA90TA PO ×2 (18:48)
[2019-09-12] MEDS ORDERED: CLOP75TA28 PO ×2 (10:07)
[2019-09-12] MEDS ORDERED: TAM04C PO ×2 (10:07)
== END 2019-08-23 21:14 | disposition left against medical advice (07) | DRG 698 ==
LOC: ER 20:46 → OVERFLOW 20:47 → WEST WING 08-23 03:30
PROVIDERS: ADMIT Hospitalist; ATTEND Internal Medicine
DX: T83.011A Breakdown (mechanical) of indwelling urethral catheter, initial encounter (principal); N17.0 Acute kidney failure with tubular necrosis; G91.2 (Idiopathic) normal pressure hydrocephalus; R31.9 Hematuria, unspecified; I10 Essential (primary) hypertension; I25.10 Atherosclerotic heart disease of native coronary artery without angina pectoris; E78.5 Hyperlipidemia, unspecified; K21.9 Gastro-esophageal reflux disease without esophagitis; N32.0 Bladder-neck obstruction; K40.90 Unilateral inguinal hernia, without obstruction or gangrene, not specified as recurrent; N30.91 Cystitis, unspecified with hematuria; E66.9 Obesity, unspecified; N40.1 Benign prostatic hyperplasia with lower urinary tract symptoms; Z90.49 Acquired absence of other specified parts of digestive tract; Z79.899 Other long term (current) drug therapy; Z95.5 Presence of coronary angioplasty implant and graft; Z79.82 Long term (current) use of aspirin; Z68.31 Body mass index [BMI] 31.0-31.9, adult; Y92.89 Other specified places as the place of occurrence of the external cause; R33.8 Other retention of urine
CPT/HCPCS: 36415; 51702; 80048; 80053; 81001; 85025; 87086; 96365; G0378; J0696

== ENCOUNTER 2019-08-25 16:54 | Emergency (ER) | payer MEDICARE, MEDICAID ==
[~2019-08-25] VITALS: Ht 167.6 cm; Wt 77.1 kg
[2019-08-25 19:20] VITALS: BP 159/88
[2019-08-25 19:49] LABS: Urine Bacteria FEW /hpf (None Seen); Urine Blood 3+ /uL (Negative); Urine Specific Gravity 1.004 (1.001-1.035); Urine WBC 2 /hpf (0 - 3)
== END 2019-08-25 20:31 | disposition home or self-care (01) ==
LOC: ER 16:54
DX: N39.0 Urinary tract infection, site not specified (principal)
CPT/HCPCS: 81001

== ENCOUNTER → 2019-08-26 | Outpatient (CLI) | payer MEDICARE, MEDICAID ==
[~2019-08-26] MED LIST changes: +CIPR-173 PO; +FAM20T PO; -FAMO20TA10 PO; +TICA90TA PO
== END | disposition home or self-care (01) ==
LOC: Rad HDHVI 14:59
PROVIDERS: ATTEND Internal Medicine Cardiovascular Disease
DX: I05.9 Rheumatic mitral valve disease, unspecified (principal); R00.2 Palpitations
CPT/HCPCS: 93306

== ENCOUNTER 2019-08-30 16:17 | Inpatient (IN) | payer MEDICARE, MEDICAID ==
[~2019-08-30] VITALS: Ht 167.6 cm; Wt 79.3 kg
[~2019-08-30 16:17] MED LIST changes: -CIPR-173 PO; -TICA90TA PO
[2019-08-30 18:22] LABS: Urine Bacteria FEW /hpf (None Seen); Urine Blood 3+ /uL (Negative); Urine Mucus FEW (None Seen); Urine Specific Gravity 1.008 (1.001-1.035); Urine WBC 6 /hpf (0 - 3)
[2019-08-30] MEDS ORDERED: cefTRIAXone 1GM/50ML D5W 50 ML IV ONE ×2 (18:45→19:45)
[2019-08-30 19:09] LABS: Basophils # (auto) 0.1 10 ^3/uL (0-0.2); Basophils % (auto) 0.6 % (0.0-2.0); Eosinophils # (auto) 0.6 10 ^3/uL (0-0.8); Eosinophils % (auto) 6.6 % (0.0-7.0); Hemoglobin 14.5 g/dL (13.5-17.5); Lymphocytes % (auto) 10.7 % (10.0-50.0); Mean Corpuscular Hemoglobin 32.7 pg (28.0-32.0); Mean Corpuscular Hgb Conc. 33.6 g/dL (32.0-36.0); Mean Corpuscular Volume 97.3 fL (80.0-100.0); Monocytes # (auto) 1.1 10 ^3/uL (0-1.3); Monocytes % (auto) 12.4 % (0.0-12.0); Neutrophils # (auto) 6.4 10 ^3/uL (1.6-8.6); Neutrophils % (auto) 69.7 % (37.0-80.0); Platelet Count (auto) 308 10^3/uL (140-450); Red Blood Cells 4.42 10^6/uL (4.5-5.90); Red Cell Distribution Width 13.5 % (11.8-14.3); White Blood Cell 9.2 10^3/uL (4.4-10.8)
[2019-08-30 19:20] LABS: INR 1.07 (0.9-1.15); Partial Thromboplastin Time 26.9 sec (23.64-32.05)
[2019-08-30 19:23] LABS: Potassium 3.4 mmol/L (3.5-5.1)
[2019-08-30] MEDS ORDERED: MORPHINE SULF INJ 2 MG/ML SYRINGE 1ML IV PRN ×2 (19:30)
[2019-08-30] MEDS ORDERED: HYDROcodone-ACET 5/325MG TAB PO PRN (19:30)
[2019-08-30] MEDS ORDERED: ONDANSETRON HCL 4 MG/2 ML VIAL IV PRN (19:30)
[2019-08-30] MEDS ORDERED: ACETAMINOPHEN 500 MG TAB PO PRN (19:30)
[2019-08-30] MEDS ORDERED: NITROGLYCERIN 0.4 MG SL TAB SL PRN (19:30)
[2019-08-30 19:31] LABS: Albumin 3.5 g/dL (3.4-5.0); BUN/Creatinine Ratio 15.8; Bilirubin, Total 1.2 mg/dL (0.2-1.0); Calcium 8.6 mg/dL (8.5-10.1); Total Protein 7.3 g/dL (6.4-8.2)
[2019-08-30] MEDS: SODIUM CHLORIDE 0.9% 1,000 ML IV SCH (20:52)
[2019-08-30] MEDS: ATORVASTATIN 20 MG TAB PO SCH (22:20)
[2019-08-30] MEDS: DOCUSATE SOD 100 MG CAP PO SCH (22:20)
[2019-08-30] MEDS: METOPROLOL TARTRATE 25 MG TAB PO SCH (22:21)
[2019-08-31 05:03] VITALS: BP 129/59
[2019-08-31 06:02] LABS: Basophils # (auto) 0 10 ^3/uL (0-0.2); Basophils % (auto) 0.8 % (0.0-2.0); Eosinophils # (auto) 0.7 10 ^3/uL (0-0.8); Eosinophils % (auto) 11.2 % (0.0-7.0); Hemoglobin 14.5 g/dL (13.5-17.5); Lymphocytes % (auto) 16.9 % (10.0-50.0); Mean Corpuscular Hemoglobin 33.6 pg (28.0-32.0); Mean Corpuscular Hgb Conc. 34.5 g/dL (32.0-36.0); Mean Corpuscular Volume 97.5 fL (80.0-100.0); Monocytes % (auto) 16.4 % (0.0-12.0); Neutrophils # (auto) 3.3 10 ^3/uL (1.6-8.6); Neutrophils % (auto) 54.7 % (37.0-80.0); Nucleated Red Blood Cells % 0.1 %; Platelet Count (auto) 293 10^3/uL (140-450); Red Blood Cells 4.31 10^6/uL (4.5-5.90); Red Cell Distribution Width 13.4 % (11.8-14.3)
[2019-08-31 06:16] LABS: Calcium 8.3 mg/dL (8.5-10.1); Potassium 3.3 mmol/L (3.5-5.1)
[2019-08-31 06:18] LABS: BUN/Creatinine Ratio 15.6
[2019-08-31] MEDS: SODIUM CHLORIDE 0.9% 1,000 ML IV SCH ×2 (08:45→22:05)
[2019-08-31 09:03] VITALS: BP 152/72
[2019-08-31] MEDS ORDERED: CLOPIDOGREL BISULFATE 75 MG TAB PO SCH (10:00)
[2019-08-31] MEDS ORDERED: ASPirin 81 mg TAB PO SCH (10:00)
[2019-08-31] MEDS ORDERED: POTASSIUM CHL 20 Meq TABLET PO ONE (10:15)
[2019-08-31] MEDS: cefTRIAXone 1GM/50ML D5W 50 ML IV SCH (10:50)
[2019-08-31] MEDS: DOCUSATE SOD 100 MG CAP PO SCH ×2 (10:53→21:51)
[2019-08-31] MEDS: METOPROLOL TARTRATE 25 MG TAB PO SCH ×2 (10:54→21:52)
[2019-08-31] MEDS: FAMOTIDINE 20 MG TAB PO SCH (10:54)
[2019-08-31] MEDS: ASCORBIC ACID 500 MG TAB PO SCH (10:55)
[2019-08-31 10:56] LABS: Free T4 (Free Thyroxine) 1.28 ng/dL (0.89-1.76)
[2019-08-31 10:57] LABS: Folate (Folic Acid) 8.92 ng/mL (5.38-24)
[2019-08-31 13:00] VITALS: BP 154/75
[2019-08-31] MEDS ORDERED: TICA90TA PO (13:37)
[2019-08-31] MEDS ORDERED: CIPR-173 PO (13:37)
[2019-08-31 17:00] VITALS: BP 152/83
[2019-08-31] MEDS: TAMSULOSIN HYDROCHLORIDE 0.4 MG CAP PO SCH (18:02)
[2019-08-31] MEDS: ATORVASTATIN 20 MG TAB PO SCH (21:51)
[2019-08-31] MEDS ORDERED: ENOXAPARIN SOD 100 MG/1 ML SYRINGE SC SCH (22:00)
[2019-08-31 23:30] VITALS: BP 153/86
[2019-09-01 05:22] VITALS: BP 125/70
[2019-09-01] MEDS: LEVOTHYROXINE SODIUM 25 MCG TAB PO SCH (06:44)
[2019-09-01] MEDS: ENOXAPARIN SOD 80 MG/0.8ML SYRINGE SC SCH ×2 (08:30→21:06)
[2019-09-01 09:07] VITALS: BP 123/76
[2019-09-01] MEDS: cefTRIAXone 1GM/50ML D5W 50 ML IV SCH (09:13)
[2019-09-01 09:39] LABS: Basophils # (auto) 0.1 10 ^3/uL (0-0.2); Basophils % (auto) 0.9 % (0.0-2.0); Eosinophils # (auto) 0.5 10 ^3/uL (0-0.8); Eosinophils % (auto) 8.4 % (0.0-7.0); Hematocrit 43.1 % (41.0-53.0); Hemoglobin 14.7 g/dL (13.5-17.5); Lymphocytes # (auto) 0.9 10 ^3/uL (0.4-5.4); Mean Corpuscular Hemoglobin 33.5 pg (28.0-32.0); Mean Corpuscular Volume 98.5 fL (80.0-100.0); Monocytes # (auto) 0.9 10 ^3/uL (0-1.3); Monocytes % (auto) 16.3 % (0.0-12.0); Neutrophils # (auto) 3.4 10 ^3/uL (1.6-8.6); Neutrophils % (auto) 58.4 % (37.0-80.0); Platelet Count (auto) 286 10^3/uL (140-450); Red Blood Cells 4.38 10^6/uL (4.5-5.90); Red Cell Distribution Width 13.2 % (11.8-14.3); White Blood Cell 5.8 10^3/uL (4.4-10.8)
[2019-09-01] MEDS: FAMOTIDINE 20 MG TAB PO SCH (09:48)
[2019-09-01] MEDS: DOCUSATE SOD 100 MG CAP PO SCH ×2 (09:48→21:06)
[2019-09-01] MEDS: METOPROLOL TARTRATE 25 MG TAB PO SCH ×2 (09:48→21:07)
[2019-09-01] MEDS: ASCORBIC ACID 500 MG TAB PO SCH (09:48)
[2019-09-01 09:59] LABS: BUN/Creatinine Ratio 11.3; Calcium 8.4 mg/dL (8.5-10.1); Magnesium 2.5 mg/dL (1.6-2.6); Potassium 3.5 mmol/L (3.5-5.1)
[2019-09-01] MEDS: SODIUM CHLORIDE 0.9% 1,000 ML IV SCH (11:25)
[2019-09-01 13:00] VITALS: BP 127/82
[2019-09-01 17:00] VITALS: BP 141/73
[2019-09-01] MEDS: TAMSULOSIN HYDROCHLORIDE 0.4 MG CAP PO SCH (18:02)
[2019-09-01] MEDS: ATORVASTATIN 20 MG TAB PO SCH (21:06)
[2019-09-01 22:07] VITALS: BP 142/71
[2019-09-02] MEDS: SODIUM CHLORIDE 0.9% 1,000 ML IV SCH ×2 (00:37→14:05)
[2019-09-02 05:24] VITALS: BP 146/88
[2019-09-02] MEDS: LEVOTHYROXINE SODIUM 25 MCG TAB PO SCH (06:44)
[2019-09-02] MEDS: ENOXAPARIN SOD 80 MG/0.8ML SYRINGE SC SCH (08:30)
[2019-09-02] MEDS: cefTRIAXone 1GM/50ML D5W 50 ML IV SCH (08:33)
[2019-09-02 09:00] VITALS: BP 130/64
[2019-09-02] MEDS: FAMOTIDINE 20 MG TAB PO SCH (09:08)
[2019-09-02] MEDS: ASCORBIC ACID 500 MG TAB PO SCH (09:08)
[2019-09-02] MEDS: DOCUSATE SOD 100 MG CAP PO SCH (09:08)
[2019-09-02] MEDS: METOPROLOL TARTRATE 25 MG TAB PO SCH (09:11)
[2019-09-02 13:00] VITALS: BP 150/76
[2019-09-02 13:53] VITALS: BP 112/75
[2019-09-02 17:00] VITALS: BP 132/80
[2019-09-02] MEDS: TAMSULOSIN HYDROCHLORIDE 0.4 MG CAP PO SCH (18:24)
== END 2019-09-02 19:15 | DRG 699 ==
LOC: ER 16:17 → TELE 16:18 → TELE-WESTW 21:30
PROVIDERS: ADMIT Nurse Practitioner Acute Care; ATTEND Internal Medicine
DX: N32.0 Bladder-neck obstruction (principal); N13.8 Other obstructive and reflux uropathy; T83.511A Infection and inflammatory reaction due to indwelling urethral catheter, initial encounter; G91.2 (Idiopathic) normal pressure hydrocephalus; N30.01 Acute cystitis with hematuria; N40.1 Benign prostatic hyperplasia with lower urinary tract symptoms; I10 Essential (primary) hypertension; I25.10 Atherosclerotic heart disease of native coronary artery without angina pectoris; E03.9 Hypothyroidism, unspecified; K40.90 Unilateral inguinal hernia, without obstruction or gangrene, not specified as recurrent; E87.6 Hypokalemia; Y84.6 Urinary catheterization as the cause of abnormal reaction of the patient, or of later complication, without mention of misadventure at the time of the procedure; E78.5 Hyperlipidemia, unspecified; I25.2 Old myocardial infarction; Z95.5 Presence of coronary angioplasty implant and graft; Z79.82 Long term (current) use of aspirin; Z79.899 Other long term (current) drug therapy; Z80.0 Family history of malignant neoplasm of digestive organs; Z20.828 Contact with and (suspected) exposure to other viral communicable diseases
CPT/HCPCS: 36415; 80048; 80053; 81001; 82607; 82746; 83735; 84439; 84443; 85025; 85610; 85730; 87081; 87086; 96365; G0378; J0696

== ENCOUNTER 2019-09-08 11:28 | Inpatient (IN) | payer MEDICARE, MEDICAID ==
[~2019-09-08] VITALS: Ht 167.6 cm; Wt 80.8 kg
[~2019-09-08 11:28] MED LIST changes: +CIPR-173 PO; +TICA90TA PO
[2019-09-08] MEDS ORDERED: CIPROFLOXACIN 400MG/200ML 200 ML IV ONE (12:13)
[2019-09-08] MEDS ORDERED: fentaNYL CITRATE 100 MCG/2 ML VL ONE (14:26)
[2019-09-08] MEDS ORDERED: BELLADONNA ALKAL/OPIUM (16.2/30MG) RECT SUPP PR ONE (15:30)
[2019-09-08] MEDS ORDERED: hydrALAZINE HCL 20 MG/ML VL ONE (16:00)
[2019-09-08] MEDS ORDERED: ePHEDrine SULFATE 50 MG/ML AMP IV PRN (16:00)
[2019-09-08] MEDS ORDERED: fentaNYL CITRATE 100 MCG/2 ML VL IV PRN (16:00)
[2019-09-08] MEDS ORDERED: ONDANSETRON HCL 4 MG/2 ML VIAL IV PRN ×2 (16:00→17:15)
[2019-09-08] MEDS: hydrALAZINE HCL 20 MG/ML VL IV PRN (16:03)
[2019-09-08] MEDS ORDERED: traMADol HCL 50 MG TAB PO PRN (17:15)
[2019-09-08] MEDS ORDERED: NITROGLYCERIN 0.4 MG SL TAB SL PRN (17:15)
[2019-09-08] MEDS ORDERED: MORPHINE SULF INJ 2 MG/ML SYRINGE 1ML IV PRN (17:15)
[2019-09-08] MEDS ORDERED: ACETAMINOPHEN 500 MG TAB PO PRN (17:15)
[2019-09-08] MEDS ORDERED: LABETALOL HCL 5 MG/ML 4ML SYRINGE IV PRN (17:15)
[2019-09-08] MEDS ORDERED: cefTRIAXone 1GM/50ML D5W 50 ML IV ONE (17:15)
--- NOTE | 2019-09-08 17:39 | NUR ---
Telemetry admit from ER BRENTON LOWE admitted to Telemetry unit after SBAR received. Patient oriented to Abena verduzco RN, unit, room, bed, and unit policies regarding patient care and visiting hours. Instructed patient on POC, fall precautions and to call for assistance as needed. Patient verbalized understanding to all information and education. Fall precautions in place with call light within reach; bed alarm on for safety. CBI in place per MD order.
[2019-09-08 18:40] LABS: Hematocrit 45.2 % (41.0-53.0); Hemoglobin 15.3 g/dL (13.5-17.5)
[2019-09-08] MEDS ORDERED: TICA90TA PO (18:48)
[2019-09-08] MEDS ORDERED: METO25TA5 PO (18:48)
[2019-09-08] MEDS ORDERED: LEVO25TA49 PO (18:48)
--- NOTE | 2019-09-08 19:22 | NUR ---
Care endorsed to TULIO Cosme. Patient resting in bed with even and unlabored respirations, no distress noted. Fall precautions in place; bed alarm on for safety. CBI in place per MD order.
[2019-09-08] MEDS: TAMSULOSIN HYDROCHLORIDE 0.4 MG CAP PO SCH (19:24)
[2019-09-08] MEDS: SODIUM CHLORIDE 0.9% 1,000 ML IV SCH (19:24)
--- NOTE | 2019-09-08 19:40 | NUR ---
MRSA swab collected & sent to lab per MD order.
[2019-09-08] MEDS: BELLADONNA ALKAL/OPIUM (16.2/30MG) RECT SUPP PR ONE ×2 (21:00→21:43)
--- NOTE | 2019-09-08 21:00 | NUR ---
Patient refused one time order of Belladonna Alkal/Opium suppository Medication Provided patient education on the uses and side/adverse effects of the medication. Patient still refused medication. Will continue to monitor patient Q1 and PRN.
[2019-09-08] MEDS: ATORVASTATIN 20 MG TAB PO SCH (21:44)
[2019-09-08] MEDS: METOPROLOL TARTRATE 25 MG TAB PO SCH (21:44)
[2019-09-08] MEDS: FAMOTIDINE 20 MG TAB PO SCH (21:45)
[2019-09-08] MEDS: ENOXAPARIN SOD 80 MG/0.8ML SYRINGE SC SCH (21:45)
[2019-09-08 22:00] VITALS: BP 155/76
[2019-09-09 00:54] LABS: Hematocrit 42.1 % (41.0-53.0); Hemoglobin 14.2 g/dL (13.5-17.5)
[2019-09-09] MEDS: SODIUM CHLORIDE 0.9% 1,000 ML IV SCH ×3 (03:09→23:09)
[2019-09-09 05:00] VITALS: BP 130/70
[2019-09-09 06:06] LABS: Basophils # (auto) 0.1 10 ^3/uL (0-0.2); Basophils % (auto) 0.6 % (0.0-2.0); Eosinophils # (auto) 0.4 10 ^3/uL (0-0.8); Eosinophils % (auto) 5.4 % (0.0-7.0); Hematocrit 40.7 % (41.0-53.0); Lymphocytes # (auto) 1.1 10 ^3/uL (0.4-5.4); Lymphocytes % (auto) 13.4 % (10.0-50.0); Mean Corpuscular Hemoglobin 33.6 pg (28.0-32.0); Mean Corpuscular Hgb Conc. 34.4 g/dL (32.0-36.0); Mean Corpuscular Volume 97.6 fL (80.0-100.0); Monocytes # (auto) 1.2 10 ^3/uL (0-1.3); Monocytes % (auto) 15.3 % (0.0-12.0); Neutrophils # (auto) 5.2 10 ^3/uL (1.6-8.6); Neutrophils % (auto) 65.3 % (37.0-80.0); Nucleated Red Blood Cells % 0.1 %; Platelet Count (auto) 272 10^3/uL (140-450); Red Blood Cells 4.17 10^6/uL (4.5-5.90); Red Cell Distribution Width 13.2 % (11.8-14.3)
[2019-09-09 06:25] LABS: Potassium 3.7 mmol/L (3.5-5.1)
[2019-09-09 06:41] LABS: Albumin 3.1 g/dL (3.4-5.0); BUN/Creatinine Ratio 14.8; Calcium 8.1 mg/dL (8.5-10.1); Total Protein 6.7 g/dL (6.4-8.2)
[2019-09-09] MEDS: LEVOTHYROXINE SODIUM 25 MCG TAB PO SCH (07:26)
--- NOTE | 2019-09-09 07:32 | NUR ---
End of Shift Note Endorsed care to dayshift RN. At this time patient has no s/s of distress or SOB. Patient responsive to name and touch. No complaints.
--- NOTE | 2019-09-09 08:00 | NUR ---
OPENING NOTE ASSUMED CARE OF PATIENT. UPON ASSESSMENT PATIENT WAS A&O X4, NO S/S OF DISTRESS NOTED, VERBALIZED COMFORT AND UNDERSTANDING OF POC. BED IN LOWEST POSITION, BEDRAILS UP X2, CALL LIGHT WITHIN REACH. WILL CONTINUE TO MONITOR.
[2019-09-09 08:56] VITALS: BP 133/77
[2019-09-09] MEDS: CYANOCOBALAMIN 500 MCG TAB PO SCH (09:38)
[2019-09-09] MEDS: ASCORBIC ACID 500 MG TAB PO SCH (09:38)
[2019-09-09] MEDS: METOPROLOL TARTRATE 25 MG TAB PO SCH ×2 (09:39→21:56)
[2019-09-09] MEDS: cefTRIAXone 1GM/50ML D5W 50 ML IV SCH (09:40)
[2019-09-09] MEDS: FAMOTIDINE 20 MG TAB PO SCH ×2 (10:00→22:00)
[2019-09-09] MEDS: ENOXAPARIN SOD 80 MG/0.8ML SYRINGE SC SCH ×2 (11:03→22:00)
--- NOTE | 2019-09-09 11:50 | NUR ---
Patient's daughter called for an update Password obtained. update provided to Keshia, patient's daughter.
--- NOTE | 2019-09-09 12:15 | NUR ---
POC discussed with Lucero Crespo
--- NOTE | 2019-09-09 12:34 | NUR ---
was at bedside - Dr. Hogan Order received and read back to verify.
[2019-09-09] MEDS ORDERED: HALOPERIDOL LACTATE 5 MG/ML INJ VIAL IM PRN (12:45)
[2019-09-09 13:00] VITALS: BP 139/73
--- NOTE | 2019-09-09 15:14 | NUR ---
RE: Behavior Patient became extremely agitated when staff attempted to prepare patient to ambulate with physical therapy. Patient stated "you all come into my apartment and try to tell me what to do." Educated patient on POC and the importance of ambulation. Patient stated "I'm 86 years old. I know how to walk." Patient yelling at this RN, getting in this RN's face and telling this RN to "shut up". Patient exiting bed with Machado catheter in place connected to CBI. Patient would not allow staff to touch the catheter and CBI materials. Instructed patient of the high fall risk and risk for injury if he proceeds with the behavior of walking without taking the catheter and CBI materials with him. Patient stated "I know what I'm doing! I've been in here for the past week and a half now. I'm cancelling my apartment contract with you all. This is ridiculous!" Reoriented patient to time, situation and place. Patient stated "I know where I'm at. I'm 85 years old!" Patient spoke with Eric charge manager. Security was on standby for assistance. Patient called Sharon (his ) on the telephone. This RN does not know if patient spoke with Sharon due to patient not allowing staff to assist him with the phone call. This RN called Keshia, patient's daughter, and updated her on patient's behavior. Keshia verbalized understanding. Situation was deescalated by limiting the number of staff members at bedside and allowing patient to speak his concerns and frustrations. patient was reoriented. One staff member is staying at bedside for safety due to the high fall risk. Bed alarm cannot be turned on due to patient continuing to exit the bed despite reorientation and education. Respirations even and unlabored, no distress noted.
--- NOTE | 2019-09-09 16:34 | NUR ---
Patient accusing staff of "stealing phone membership assistant" Informed patient that his phone membership assistant was left at [facility] and that his daughter, Keshia, said that they would pick it up from that facility. Patient stated "oh that's great! That's all I needed to know. Real piece of work you are!!!"
[2019-09-09 16:41] VITALS: BP 158/84
--- NOTE | 2019-09-09 17:05 | NUR ---
Patient transferred to room 270B via hospital bed Patient stated "I don't want to be moved. I like my view in this apartment. You can just go away!" Instructed patient that he is being moved due to high fall risk and the need to have a staff member at bedside for safety. Patient stated "I'm 86 years old! 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 I'm under protest." While transferring patient, patient stated "What kind of place is this?" Reoriented patient to situation and place. Patient stated "whatever you say." Patient transferred to room with no complications. Security was on standby. Fall precautions in place with call light within reach. All of patient's personal belongings transferred with the patient. Staff member at bedside for safety.
--- NOTE | 2019-09-09 17:14 | NUR ---
Updated patient's daughter on room transfer Spoke with Keshia patient's daughter.
[2019-09-09] MEDS: TAMSULOSIN HYDROCHLORIDE 0.4 MG CAP PO SCH (18:02)
--- NOTE | 2019-09-09 18:10 | NUR ---
Patient resting in bed Patient is pleasant and speaking to staff members while eating dinner meal. Patient stated "I've been here for 20 years." Patient reoriented to situation and place. Patient verbalized understanding and stated "Oh, okay."
--- NOTE | 2019-09-09 19:13 | NUR ---
Care endorsed to Sarah Buchanan RN. patient resting in bed with even and unlabored respirations, no distress noted. Fall precautions in place with call light within reach; staff member at bedside for safety.
[2019-09-09 20:00] VITALS: BP 139/73
--- NOTE | 2019-09-09 20:20 | NUR ---
PT AWAKE ALERT AND MANIFESTING A CHEERFUL AFFECT.TURNS SELF IN BED VERY WELL. CBI FUNCTIONING STEADILY WITH LIGHT PINK TINGED URINE. SITTER AT BEDSIDE. PT DENIES PAIN.
[2019-09-09] MEDS: ATORVASTATIN 20 MG TAB PO SCH (21:55)
[2019-09-09 22:00] VITALS: BP 146/81
[2019-09-10 05:00] VITALS: BP 125/75
[2019-09-10] MEDS: LEVOTHYROXINE SODIUM 25 MCG TAB PO SCH (07:00)
[2019-09-10 07:47] LABS: Basophils # (auto) 0 10 ^3/uL (0-0.2); Basophils % (auto) 0.6 % (0.0-2.0); Eosinophils # (auto) 0.4 10 ^3/uL (0-0.8); Eosinophils % (auto) 7.4 % (0.0-7.0); Hematocrit 41.8 % (41.0-53.0); Hemoglobin 14.4 g/dL (13.5-17.5); Lymphocytes % (auto) 16.9 % (10.0-50.0); Mean Corpuscular Hemoglobin 33.5 pg (28.0-32.0); Mean Corpuscular Hgb Conc. 34.4 g/dL (32.0-36.0); Mean Corpuscular Volume 97.6 fL (80.0-100.0); Monocytes # (auto) 1.1 10 ^3/uL (0-1.3); Monocytes % (auto) 17.7 % (0.0-12.0); Neutrophils # (auto) 3.5 10 ^3/uL (1.6-8.6); Neutrophils % (auto) 57.4 % (37.0-80.0); Nucleated Red Blood Cells % 0.1 %; Platelet Count (auto) 286 10^3/uL (140-450); Red Blood Cells 4.28 10^6/uL (4.5-5.90); Red Cell Distribution Width 13.3 % (11.8-14.3)
--- NOTE | 2019-09-10 08:02 | NUR ---
PT TRANSPORTED TO PRE-OP VIA BED, PT IS AWAKE AND ALERT, IV ON RIGHT FOREARM IS PATENT AND FLUSHING, WITH ONGOING CBI, NO SIGNS OF DISTRESS AT THIS TIME.
[2019-09-10] MEDS ORDERED: ceFAZolin 1GM/50ML 50 ML IV ONE (08:09)
[2019-09-10] MEDS ORDERED: fentaNYL CITRATE 100 MCG/2 ML VL ONE ×2 (08:19→08:53)
[2019-09-10] MEDS ORDERED: MIDAZOLAM HCL 1MG/1ML-2 ML VIAL ONE (08:19)
[2019-09-10 08:30] VITALS: BP 146/92
[2019-09-10] MEDS ORDERED: ONDANSETRON HCL 4 MG/2 ML VIAL ONE (08:38)
[2019-09-10] MEDS ORDERED: PROPOFOL 10 MG/ML 20 ML IV ONE (08:39)
[2019-09-10] MEDS: BELLADONNA ALKAL/OPIUM (16.2/30MG) RECT SUPP PR SCH (10:00)
[2019-09-10] MEDS: FAMOTIDINE 20 MG TAB PO SCH ×2 (10:00→21:44)
[2019-09-10] MEDS: ENOXAPARIN SOD 80 MG/0.8ML SYRINGE SC SCH ×2 (10:00→21:44)
[2019-09-10] MEDS ORDERED: MEPERIDINE HCL (25 MG/ML) 1ML VIAL ONE (10:00)
[2019-09-10] MEDS ORDERED: METOCLOPRAMIDE HCL 5MG/ml INJ 2ml VIAL IV PRN (10:15)
[2019-09-10] MEDS: MEPERIDINE HCL (25 MG/ML) 1ML VIAL IV PRN ×2 (10:15→10:28)
[2019-09-10] MEDS ORDERED: hydrALAZINE HCL 20 MG/ML VL IV PRN (10:15)
[2019-09-10] MEDS ORDERED: HYDROmorphone HCL 2 MG/ML VL IV PRN (10:15)
[2019-09-10] MEDS ORDERED: hydrALAZINE HCL 20 MG/ML VL ONE (10:17)
--- NOTE | 2019-09-10 11:00 | NUR ---
RECEIVED PT S/P TURP,PT IS AWAKE AND ALERT, NO COMPLAINTS OF PAIN, ON CBI WITH CLEAR LIGHT PINK OUTPUT. VITAL SIGNS ARE STABLE, WILL CONTINUE TO MONITOR.
[2019-09-10] MEDS: ASCORBIC ACID 500 MG TAB PO SCH (11:23)
[2019-09-10] MEDS: CYANOCOBALAMIN 500 MCG TAB PO SCH (11:23)
[2019-09-10] MEDS: METOPROLOL TARTRATE 25 MG TAB PO SCH ×2 (11:31→21:44)
[2019-09-10] MEDS: cefTRIAXone 1GM/50ML D5W 50 ML IV SCH (12:03)
--- NOTE | 2019-09-10 12:16 | NUR ---
CALLED PHARMACY TO SEND BELLADONA SUPPOSITORY.
--- NOTE | 2019-09-10 12:56 | NUR ---
pt refused belladona at this time, will continue to monitor.
[2019-09-10 13:00] VITALS: BP 134/71
--- NOTE | 2019-09-10 16:05 | NUR ---
Attempted PT eval. Spoke with patient who was agreeable to treatment. Pt became upset that I left the room to talk to nurse and began yelling. Pt was agreeable to treatment tomorrow. Will attempt again.
[2019-09-10] MEDS: SODIUM CHLORIDE 0.9% 1,000 ML IV SCH ×2 (16:09→17:54)
[2019-09-10 16:57] VITALS: BP 125/65
[2019-09-10] MEDS: TAMSULOSIN HYDROCHLORIDE 0.4 MG CAP PO SCH (17:53)
--- NOTE | 2019-09-10 19:16 | NUR ---
CARE ENDORSED TO TULIO PEREZ SUPPOSITORY IN PT'S CASSETTE. Addendum: 09/10/19 at 1916 by Jing Small RN PT ON CONTINUOUS CBI WITH LIGHT PINK OUTPUT.
--- NOTE | 2019-09-10 19:41 | NUR ---
Opening Shift Note Received report and assumed care of patient. Patient is awake and alert with moments of confusion. No signs or symptoms of distress noted, patient currently denies pain. Instructed patient on plan of care and to call for assistance as needed. Sitter at bedside. Patient has continuous bladder irrigation running with urine noted to be pink. Will continue to monitor.
--- NOTE | 2019-09-10 21:10 | NUR ---
IV removal/insertion 20g IV to the Right wrist reddened and infiltrated. Discontinued IV with clean technique, catheter tip fully intact. Pressure dressing applied to site. NOTE: Inserted 22g IV to the Right forearm. Patient tolerated well.
[2019-09-10 21:11] VITALS: BP 101/61
[2019-09-10] MEDS: ATORVASTATIN 20 MG TAB PO SCH (21:44)
--- NOTE | 2019-09-10 22:00 | NUR ---
Medication Held Held Lovenox due to patient's status post TURP with blood tinged urine and per MD note stating "No Lovenox today". Patient has SCDs applied to bilateral lower extremities. Will continue to monitor.
[2019-09-11] MEDS: SODIUM CHLORIDE 0.9% 1,000 ML IV SCH (02:58)
[2019-09-11 04:50] VITALS: BP 130/71
[2019-09-11] MEDS: LEVOTHYROXINE SODIUM 25 MCG TAB PO SCH (06:24)
--- NOTE | 2019-09-11 07:11 | NUR ---
Continuous Bladder Irrigation Intake and Output Intake: 9000ml Output: [id number]
--- NOTE | 2019-09-11 07:50 | NUR ---
Opening Note Assumed pt care from NOC RN. Pt is a/ox4 with no s/s of distress or SOB. Pt is currently sitting upright in bed eating breakfast with no complaints at this time. CBI is currently running; light pink drainage in tinsley. Discussed POC with pt; pt verbalized understanding. Sitter is present in room. Safety measures maintained with call light within reach, bed in lowest position and side rails up. Will continue to monitor.
[2019-09-11 09:00] VITALS: BP 101/57
[2019-09-11] MEDS: cefTRIAXone 1GM/50ML D5W 50 ML IV SCH (09:25)
[2019-09-11] MEDS: FAMOTIDINE 20 MG TAB PO SCH ×2 (09:26→22:00)
[2019-09-11] MEDS: BELLADONNA ALKAL/OPIUM (16.2/30MG) RECT SUPP PR SCH (09:27)
[2019-09-11] MEDS: ENOXAPARIN SOD 80 MG/0.8ML SYRINGE SC SCH ×2 (09:27→21:09)
[2019-09-11] MEDS: ASCORBIC ACID 500 MG TAB PO SCH (09:30)
[2019-09-11] MEDS: CYANOCOBALAMIN 500 MCG TAB PO SCH (09:30)
[2019-09-11] MEDS: METOPROLOL TARTRATE 25 MG TAB PO SCH ×2 (09:30→21:09)
--- NOTE | 2019-09-11 10:09 | NUR ---
Dr Daniel at Bedside MD to see pt. New orders given. Will implement and continue to monitor.
[2019-09-11] MEDS ORDERED: DOCUSATE SOD 100 MG CAP PO ONE (10:15)
--- NOTE | 2019-09-11 11:10 | NUR ---
CBI Stopped Per MD's Orders CBI Stopped. 1050mL of light pink tinged drainage removed from tinsley.
--- NOTE | 2019-09-11 11:40 | NUR ---
Tele 62 Removed M/S Downgrade Monitor removed and walked down to tele monitor. Staff made aware of down grade.
--- NOTE | 2019-09-11 14:54 | NUR ---
Nutrition Assessment Notes please see attached link for complete assessment Est Energy needs ABW 75 [id number] kcals (23-25 kcal/kgBW), Est Protein needs: 75-82 gms/day (1.0-1.1 gm/kgBW). Will continue to monitor and reassess prn. Addendum: 09/11/19 at [address] Amended: Links added.
[2019-09-11] MEDS: TAMSULOSIN HYDROCHLORIDE 0.4 MG CAP PO SCH (17:35)
[2019-09-11] MEDS: DOCUSATE SOD 100 MG CAP PO SCH (21:08)
[2019-09-11] MEDS: ATORVASTATIN 20 MG TAB PO SCH (21:10)
[2019-09-11 22:00] VITALS: BP 126/75
[2019-09-12 05:00] VITALS: BP 136/81
[2019-09-12] MEDS: LEVOTHYROXINE SODIUM 25 MCG TAB PO SCH (06:09)
--- NOTE | 2019-09-12 07:28 | NUR ---
Opening Note Assumed pt care form NOC RN. Pt is a/o4 with no s/s of distress or SOB. PT is currently sitting upright in bed with no complaints at this time. Machado is present, normal yellow colored urine present; no clots or pink tinged urine noted. Pt states he has not had a BM, but is passing gas. No c/o of abdominal pain or tenderness. Discussed POC with pt; pt verbalized understanding. Safety measures maintained with call light within reach, bed in lowest position and side rails up. Will continue to monitor.
[2019-09-12] MEDS: cefTRIAXone 1GM/50ML D5W 50 ML IV SCH (08:26)
--- NOTE | 2019-09-12 08:34 | NUR ---
Dr Canchola Called Dr Canchola called and requested an update. requested that we test tinsley catheter and check for resistance; if no issues or resistance, MD requests catheter be removed and pt is able to be discharged. Will implement and continue to monitor. Addendum: 09/12/19 at 0847 by GIOVANNI MCNAIR RN RN D/C of Tinsley After slowly deflating the balloon in increments of 10mL, no discomfort, tenderness, or resistance was noted. No abnormalities noted upon deflating as far as blood tinged urine. Able to removed catheter fully, and pt tolerated well. No resistance or pain met with withdrawing the catheter. No blood tinged urine noted. 350mL or yellow tinged urine present in catheter upon d/c. Pt provided urinal and instructed to call or notify the sitter if any voiding issues are had. Will continue to monitor voiding needs.
[2019-09-12 09:00] VITALS: BP 148/92
[2019-09-12] MEDS: CYANOCOBALAMIN 500 MCG TAB PO SCH (09:01)
[2019-09-12] MEDS: DOCUSATE SOD 100 MG CAP PO SCH (09:01)
[2019-09-12] MEDS: ASCORBIC ACID 500 MG TAB PO SCH (09:01)
[2019-09-12] MEDS: FAMOTIDINE 20 MG TAB PO SCH (09:02)
[2019-09-12] MEDS: BELLADONNA ALKAL/OPIUM (16.2/30MG) RECT SUPP PR SCH (09:02)
[2019-09-12] MEDS: ENOXAPARIN SOD 80 MG/0.8ML SYRINGE SC SCH (09:02)
[2019-09-12] MEDS: METOPROLOL TARTRATE 25 MG TAB PO SCH (09:02)
--- NOTE | 2019-09-12 09:42 | NUR ---
Dr Daniel at Bedside MD to see pt. states that once pt is able to urinate, pt is able to be discharged home. Will implement and continue to monitor.
[2019-09-12] MEDS ORDERED: CLOP75TA28 PO (10:07)
[2019-09-12] MEDS ORDERED: TAM04C PO (10:07)
--- NOTE | 2019-09-12 12:26 | NUR ---
VOIDING Pt has since voided x3. No abnormalities of pain noted. Spoke with pt's daughter, will be able to pickling solution maker pt at [phone]. Pt made aware. Will continue to monitor.
[2019-09-12 12:30] VITALS: BP 135/78
[2019-09-12 12:48] VITALS: BP 148/92
--- NOTE | 2019-09-12 15:49 | NUR ---
IV D/C'ed IV to pt's R FA/wrist discontinued. Catheter was removed fully intact. Site is slightly red and tender. Pressure was applied to site for 3 minutes with gauze and then wrapped in coban. Pt instructed to keep dressing on for 30 minutes; pt verbalized understanding.
--- NOTE | 2019-09-12 17:22 | NUR ---
Pt D/C'd Off Unit Pt d/c'ed off unit via wheelchair. Pt is a/ox4 with no s/s of distress or SOB. Pt provided all education material, information regarding followup appointment, and prescription information. All questions were answered and information provided to pt's family at discharge. IV was d/c'ed prior to d/c.
--- NOTE | 2019-09-12 17:27 | NUR ---
Assessment Patient is an 84 year old male who is alert and oriented. Prior to admission patient lived home with his Sharon and functioned independently. Patient informed me he can care for his own ADLs. Per patient he has a wheelchair and fww for home use. Per patient he will return to his prior living arrangements and family will transport her home. Advised patient he has a social service consult for safety evaluation, vitals, and medication management. Per patient he is on service with [facility] and would like to resume service with [facility]. Informed patient clinical information will be faxed to [facility]. Informed patient he has a right to speak to a oncology social work regarding all care. Informed patient he has a right to participate in all discharge planning. Patient verbalized understanding and agreed to discharge plan. Per Nicole with [facility] [phone] they will resume service for patient within 24-48hrs upon d/c day. Addendum: 09/12/19 at 1728 by FRAN CLAYTON Amended: Links added.
== END 2019-09-12 17:20 | disposition home health service (06) | DRG 713 ==
LOC: SUR 11:28 → WEST WING 11:29 → TELE-WESTW 19:09 → WEST WING 09-11 11:15
PROVIDERS: ADMIT Urology; ATTEND Internal Medicine
PROC: 0VB07ZX Excision of Prostate, Via Natural or Artificial Opening, Diagnostic (ICD-10-PCS; 2019-09-08)
PROC: 0T9B70Z Drainage of Bladder with Drainage Device, Via Natural or Artificial Opening (ICD-10-PCS; principal; 2019-09-08 14:11)
PROC: 0VB08ZZ Excision of Prostate, Via Natural or Artificial Opening Endoscopic (ICD-10-PCS; 2019-09-10)
DX: N40.1 Benign prostatic hyperplasia with lower urinary tract symptoms (principal); N39.0 Urinary tract infection, site not specified; G91.2 (Idiopathic) normal pressure hydrocephalus; N13.8 Other obstructive and reflux uropathy; I25.10 Atherosclerotic heart disease of native coronary artery without angina pectoris; K21.9 Gastro-esophageal reflux disease without esophagitis; R97.20 Elevated prostate specific antigen [PSA]; R31.0 Gross hematuria; K40.90 Unilateral inguinal hernia, without obstruction or gangrene, not specified as recurrent; I10 Essential (primary) hypertension; Z53.8 Procedure and treatment not carried out for other reasons; E78.5 Hyperlipidemia, unspecified; R33.8 Other retention of urine; E03.9 Hypothyroidism, unspecified; Z85.038 Personal history of other malignant neoplasm of large intestine; Z87.440 Personal history of urinary (tract) infections; E66.9 Obesity, unspecified; Z90.79 Acquired absence of other genital organ(s); Z95.5 Presence of coronary angioplasty implant and graft; I25.2 Old myocardial infarction; Z68.31 Body mass index [BMI] 31.0-31.9, adult; Z11.59 Encounter for screening for other viral diseases
CPT/HCPCS: 36415; 80053; 85014; 85018; 85025; 87081; 87635; 97163; G0378; J0690; J0696; J2250; J2405; J2704

== ENCOUNTER → 2019-09-26 | Outpatient (CLI) | payer MEDICARE, MEDICAID ==
[~2019-09-26] MED LIST changes: +ATOR40TA52 PO; -CARI100T PO; +CHOL20002 PO; -CHOL20007 PO; -CIPR-173 PO; +CLOP75TA28 PO; +CLOP75TA41 PO; -FAM20T PO; -KRIL1000 PO; +LACTCAP35 PO; +LEVO25TA49 PO; +MAGNTAB16 PO; -MET25T PO; +METO25TA5 PO; -OMEG100062 PO; +OMEG100078 PO; -SELE200T23 OR; -TURM1TAB PO; +TURM500C3 PO
[2019-09-26 09:35] VITALS: BP 153/72
--- NOTE | 2019-09-26 09:35 | NUR ---
Patient in for scheduled preop, AAOx4, ambulatory, breathing even and unlabored.
[2019-09-26 10:05] VITALS: BP 107/74
--- NOTE | 2019-09-26 10:05 | NUR ---
Pre-Op Discharge Summary: See e-MAR for any medications given for this visit. Pre-op orders received and carried out per MD of EKG, LABS and chest xrays. Patient given a copy of EKG with instructions to go to [facility] out patient for further follow up care.
[2019-09-26 12:05] LABS: Basophils # (auto) 0 10 ^3/uL (0-0.2); Basophils % (auto) 0.6 % (0.0-2.0); Eosinophils # (auto) 0.5 10 ^3/uL (0-0.8); Eosinophils % (auto) 7.1 % (0.0-7.0); Hematocrit 42.2 % (41.0-53.0); Hemoglobin 14.2 g/dL (13.5-17.5); Lymphocytes # (auto) 1.1 10 ^3/uL (0.4-5.4); Lymphocytes % (auto) 14.7 % (10.0-50.0); Mean Corpuscular Hemoglobin 32.9 pg (28.0-32.0); Mean Corpuscular Hgb Conc. 33.6 g/dL (32.0-36.0); Mean Corpuscular Volume 97.7 fL (80.0-100.0); Monocytes # (auto) 0.8 10 ^3/uL (0-1.3); Monocytes % (auto) 11.5 % (0.0-12.0); Neutrophils # (auto) 4.7 10 ^3/uL (1.6-8.6); Neutrophils % (auto) 66.1 % (37.0-80.0); Nucleated Red Blood Cells % 0.2 %; Platelet Count (auto) 369 10^3/uL (140-450); Red Blood Cells 4.31 10^6/uL (4.5-5.90); White Blood Cell 7.2 10^3/uL (4.4-10.8)
[2019-09-26 12:15] LABS: INR 1.03 (0.9-1.15); Partial Thromboplastin Time 28.1 sec (23.64-32.05)
[2019-09-26 12:20] LABS: Calcium 8.9 mg/dL (8.5-10.1); Potassium 3.7 mmol/L (3.5-5.1)
[2019-09-26 12:21] LABS: BUN/Creatinine Ratio 21.9
== END | disposition home or self-care (01) ==
LOC: Rad HDHVI 09:21
PROVIDERS: ATTEND Internal Medicine Cardiovascular Disease
DX: Z01.812 Encounter for preprocedural laboratory examination (principal); J98.11 Atelectasis; I70.0 Atherosclerosis of aorta; I10 Essential (primary) hypertension; D64.9 Anemia, unspecified; R79.1 Abnormal coagulation profile; M47.894 Other spondylosis, thoracic region; Z86.73 Personal history of transient ischemic attack (TIA), and cerebral infarction without residual deficits
CPT/HCPCS: 36415; 71046; 80048; 85025; 85610; 85730; 93005; G0463

== ENCOUNTER 2019-09-29 07:18 | Inpatient (IN) | payer MEDICARE, MEDICAID ==
[~2019-09-29] VITALS: Ht 167.6 cm; Wt 77.0 kg
[~2019-09-29 07:18] MED LIST changes: -ATOR40TA52 PO; -CHOL20002 PO; -CLOP75TA41 PO; -LACTCAP35 PO; -MAGNTAB16 PO; -OMEG100078 PO; -TURM500C3 PO
[2019-09-29] MEDS ORDERED: IOHEXOL 350 MG/ML 100ML IJ ONE (07:53)
[2019-09-29] MEDS ORDERED: LIDOCAINE 2%HCL (LOCAL ANESTH.) INJ 20ML MDV ONE (08:13)
[2019-09-29] MEDS ORDERED: SODIUM CHL 0.9% 50 ML ONE (08:33)
[2019-09-29] MEDS ORDERED: ANGIOMAX 250 MG VIAL IV ONE (08:33)
[2019-09-29] MEDS ORDERED: MIDAZOLAM HCL 1MG/1ML-2 ML VIAL ONE (08:33)
[2019-09-29] MEDS ORDERED: fentaNYL CITRATE 100 MCG/2 ML VL ONE (08:33)
[2019-09-29] MEDS ORDERED: NITROGLYCERIN 0.4MG/DOSE SPRAY 4.9GM ONE (09:10)
[2019-09-29] MEDS ORDERED: ACETAMINOPHEN 500 MG TAB PO PRN (10:15)
[2019-09-29] MEDS ORDERED: ONDANSETRON HCL 4 MG/2 ML VIAL IV PRN (10:15)
[2019-09-29] MEDS ORDERED: NITROGLYCERIN 0.4 MG SL TAB SL PRN (10:15)
[2019-09-29] MEDS ORDERED: HYDROcodone-ACET 5/325MG TAB PO PRN (10:15)
[2019-09-29] MEDS ORDERED: MORPHINE SULF INJ 2 MG/ML SYRINGE 1ML IV PRN (10:15)
--- NOTE | 2019-09-29 14:58 | NUR ---
Pt Arrived on Unit Pt arrived on unit from [facility]. Pt transported via stretcher; pt was able to transfer from stretcher to bed without difficulty. Pt is a/ox4 with no s/s of distress or SOB. Pt is currently on RA. Site to R groin is clean, dry and intact. Safety measures are initiated with call light within reach, bed in lowest position and side rails up. Alarm has been set for safety. Will continue to monitor.
[2019-09-29 15:13] VITALS: BP 144/72
[2019-09-29] MEDS ORDERED: cloNIDine HCL 0.1 MG TAB PO PRN (15:15)
[2019-09-29] MEDS ORDERED: CLOP75TA41 PO (15:57)
[2019-09-29] MEDS ORDERED: ATOR40TA52 PO (16:01)
[2019-09-29] MEDS ORDERED: OMEG100078 PO (16:04)
[2019-09-29] MEDS ORDERED: ASCO500T11 PO (16:04)
[2019-09-29] MEDS ORDERED: CHOL20002 PO (16:05)
[2019-09-29] MEDS ORDERED: TURM500C3 PO (16:06)
[2019-09-29] MEDS ORDERED: LACTCAP35 PO (16:07)
[2019-09-29] MEDS ORDERED: MAGNTAB16 PO (16:16)
--- NOTE | 2019-09-29 16:31 | NUR ---
MRSA NARES SENT TO LAB
[2019-09-29] MEDS ORDERED: TAMSULOSIN HYDROCHLORIDE 0.4 MG CAP PO SCH (18:00)
--- NOTE | 2019-09-29 19:40 | NUR ---
RECEIVED PATIENT FROM DAY SHIFT RN. PATIENT RESTING IN BED. NO S/S OF DISTRESS NOTED. DENIED PAIN FOR NOW. DRESSING ON RIGHT GROIN C/D/I. INGUINAL HERNIA NOTED. PATIENT REQUESTED TO SEE A SURGEON. WILL PASS IT TO DAY SHIFT RN. POC INSTRUCTED AND ENCOURAGED PATIENT TO CALL FOR INFECTION CONTROL PRACTITIONER IF NEEDED. BED IN LOWEST POSITION WITH SIDE RAILS UP X 2. CALL WEBER WITHIN REACH. ALARM ON. CONTINUE TO MONITOR FOR CHANGES Q1H AND PRN.
--- NOTE | 2019-09-29 21:55 | NUR ---
CALLED PHARMACY FOR EDILBERTO. WILL SEND IT HEMANT. CONTINUE CARE.
[2019-09-29 22:00] VITALS: BP 143/78
[2019-09-29] MEDS ORDERED: ATORVASTATIN 20 MG TAB PO SCH (22:00)
[2019-09-29] MEDS: TICAGRELOR 90 MG TAB PO SCH (22:14)
--- NOTE | 2019-09-29 22:14 | NUR ---
EDUCATED PATIENT ON SIDE EFFECTS OF MEDICATIONS. PATIENT VERBALIZED UNDERSTANDING. CONTINUE TO MONITOR.
--- NOTE | 2019-09-30 01:20 | NUR ---
PATIENT STANDING IN FRONT OF THE DOOR AND ASKING WHERE HE IS . REORIENTED PATIENT PLACE AND TIME. PATIENT VERBALIZED UNDERSTANDING. AND BACK TO BED. CONTINUE TO MONITOR.
--- NOTE | 2019-09-30 03:59 | NUR ---
PATIENT SLEEPING. NO S/S OF DISTRESS AND PAIN NOTED. CONTINUE TO MONITOR.
--- NOTE | 2019-09-30 05:00 | NUR ---
PATIENT'S BP 163/91, HR 79. MEDICATED PATIENT ORDERED. CONTINUE TO MONITOR.
[2019-09-30 05:21] VITALS: BP 163/91
--- NOTE | 2019-09-30 05:53 | NUR ---
REASSESSED BP 121/62, HR 69. CONTINUE TO MONITOR.
[2019-09-30 08:00] VITALS: BP 121/62
--- NOTE | 2019-09-30 08:00 | NUR ---
ASSESSMENT NOTE PT IS ALERT ORIENTED X4, SITTING AT THE SIDE OF THE BED, NO DISTRESS NOTED, PT HAS DRY CLEAN DRESSING AT THE RT GROIN, NO SIGNS OF BLEEDING NOTED, PAIN 0/10, LARGE GROIN HERNIA NOTED, CALL LIGHT WITHIN REACH
[2019-09-30] MEDS: TICAGRELOR 90 MG TAB PO SCH (09:01)
[2019-09-30 09:32] VITALS: BP 125/72
[2019-09-30] MEDS ORDERED: TAMSULOSIN HYDROCHLORIDE 0.4 MG CAP PO SCH (10:00)
[2019-09-30] MEDS ORDERED: LEVOTHYROXINE SODIUM 25 MCG TAB PO SCH (10:00)
[2019-09-30] MEDS ORDERED: ASCORBIC ACID 500 MG TAB PO SCH (10:00)
[2019-09-30] MEDS ORDERED: CYANOCOBALAMIN 500 MCG TAB PO SCH (10:00)
[2019-09-30] MEDS ORDERED: ASPirin 81 mg TAB PO SCH (10:00)
[2019-09-30] MEDS ORDERED: METOPROLOL TARTRATE 25 MG TAB PO SCH (10:00)
[2019-09-30 11:34] VITALS: BP 125/72
--- NOTE | 2019-09-30 11:59 | NUR ---
DR SAUL CALLED WITH DISCHARGE HOME INSTRUCTION, PT WILL RESUME HOME MEDICATIONS, FOLLOW UP WITH DR SAUL IN ONE WEEK, AND DISCHARGE HOME WITH [facility]
--- NOTE | 2019-09-30 12:21 | NUR ---
DAVID THE DIRECTOR FROM [facility]ICH IS AFFLITAED WITH [facility] CALLED, MADE AWARE THAT PT IS GOING HOME TODAY, REQUESTED A DISCHARGE HOME ORDER WITH A FACE SHEET
--- NOTE | 2019-09-30 12:29 | NUR ---
FACE SHEET, DISCHARGE ORDERS AND PROGRESS NOTED FAXED TO DAVID IN [facility]
--- NOTE | 2019-09-30 12:45 | NUR ---
SPOKE WITH PATIENT'S OVER THE PHONE,MADE AWARE HER IS READY TO GO HOME, INFORM HER PER DR SAUL TO RESUME HOME MEDICATIONS, ONE DOSE OF [place] WAS GIVEN THIS MORNING, FOLLOW UP WITH DR SAUL IN ONE WEEK AND NEED TO MAKE APPOINTMENT ON THURSDAY, AND FOR [facility] TO FOLLOW UP, VERBALIS UNDERSTANDING, SAID THAT HER DAUGHTER WILL PICK HER UP FROM THE MAIN LOBBY
--- NOTE | 2019-09-30 12:53 | NUR ---
PT REFUSED TO WAIT FOR HIS DAUGHTER IN HIS ROOM, STATED I WANT TO WAIT IN THE LOBBY, AMBULATE WITH PATIENT TO THE MAIN LOBBY, VOLUNTEER DESK MADE AWARE
--- NOTE | 2019-09-30 12:54 | NUR ---
Discharge instructions given as ordered. Encourage to follow up with PMD as instructed. All questions and concerns addressed. Patient verbalized understanding. Medication reconciliation form completed and copy given to patient. . IV removed with catheter intact, pressure dressing applied, Telemetry unit returned to ICU. Patient ambulated out to the main lobby with all personal belongings, accompanied by staff and family member. No distress noted at time of departure.
--- NOTE | 2019-09-30 12:57 | NUR ---
CALLED PATIENT'S AGAIN, MADE AWARE THAT HER IS WAITING IN THE LOBBY SAID I WILL LET MY DAUGHTER KNOW, AND MADE AWARE THAT PER DR SAUL HER NEED TO CONTINUE ON BRILINTA NOT PLAVIX, VERBALIS UNDERSTANDING
--- NOTE | 2019-10-03 10:09 | NUR ---
[facility] WEEKEND Regarding social service consult for home health with [place]. No Page and No call was received regarding this order. Faxed clinical information to [facility].
== END 2019-09-30 12:55 | disposition home or self-care (01) | DRG 247 ==
LOC: CATH 07:18 → TELE-CENTR 15:04
PROVIDERS: ADMIT Internal Medicine Cardiovascular Disease; ATTEND Internal Medicine Cardiovascular Disease
PROC: 027035Z Dilation of Coronary Artery, One Artery with Two Drug-eluting Intraluminal Devices, Percutaneous Approach (ICD-10-PCS; principal; 2019-09-29)
PROC: B2111ZZ Fluoroscopy of Multiple Coronary Arteries using Low Osmolar Contrast (ICD-10-PCS; 2019-09-29)
PROC: B2151ZZ Fluoroscopy of Left Heart using Low Osmolar Contrast (ICD-10-PCS; 2019-09-29)
DX: I25.10 Atherosclerotic heart disease of native coronary artery without angina pectoris (principal); I50.42 Chronic combined systolic (congestive) and diastolic (congestive) heart failure; E78.5 Hyperlipidemia, unspecified; I11.0 Hypertensive heart disease with heart failure; J44.9 Chronic obstructive pulmonary disease, unspecified; K40.20 Bilateral inguinal hernia, without obstruction or gangrene, not specified as recurrent; M19.90 Unspecified osteoarthritis, unspecified site; M81.0 Age-related osteoporosis without current pathological fracture; K57.90 Diverticulosis of intestine, part unspecified, without perforation or abscess without bleeding; I25.2 Old myocardial infarction; Z79.899 Other long term (current) drug therapy; Z20.828 Contact with and (suspected) exposure to other viral communicable diseases
CPT/HCPCS: 36415; 71046; 80048; 85025; 85610; 85730; 87081; 92928; 93005; 93458; 99152; 99153; C1874; C1887; G0378; G0463; J2250

== ENCOUNTER → 2019-10-07 | Outpatient (CLI) | payer MEDICARE, MEDICAID ==
[~2019-10-07] MED LIST changes: -ATOR20TA50 PO; +ATOR40TA52 PO; +CHOL20002 PO; -CLOP75TA28 PO; +CLOP75TA41 PO; +LACTCAP35 PO; +MAGNTAB16 PO; +OMEG100078 PO; +TURM500C3 PO
== END | disposition home or self-care (01) ==
LOC: Rad HDHVI 15:08
PROVIDERS: ATTEND Internal Medicine Cardiovascular Disease
DX: I25.118 Atherosclerotic heart disease of native coronary artery with other forms of angina pectoris (principal); I10 Essential (primary) hypertension; Z95.5 Presence of coronary angioplasty implant and graft
CPT/HCPCS: 93306

== ENCOUNTER → 2019-12-01 | Outpatient (CLI) | payer MEDICARE, MEDICAID | END | disposition home or self-care (01) | LOC: LAB 10:42 | PROVIDERS: ATTEND Nurse Practitioner | DX: E03.9 Hypothyroidism, unspecified (principal) | CPT/HCPCS: 36415; 84443 ==

== ENCOUNTER → 2020-03-06 | Outpatient (CLI) | payer MEDICARE, MEDICAID ==
[~2020-03-06] VITALS: Ht 167.6 cm; Wt 79.4 kg
[~2020-03-06] MED LIST changes: +ADENOSINE 67 MG in GIVE UN-DILUTED 0 ML IV ONE; +ADENOSINE 90 MG/30 ML INJ IV ONE
== END | disposition home or self-care (01) ==
LOC: Rad HDHVI 09:07
PROVIDERS: ATTEND Internal Medicine Cardiovascular Disease
DX: I25.10 Atherosclerotic heart disease of native coronary artery without angina pectoris (principal); I10 Essential (primary) hypertension; E78.00 Pure hypercholesterolemia, unspecified
CPT/HCPCS: 78452; 93005; 96374; 96375; A9500; J0153

== ENCOUNTER → 2020-09-17 | Outpatient (CLI) | payer MEDICARE, MEDICAID ==
[~2020-09-17] MED LIST changes: -ADENOSINE 67 MG in GIVE UN-DILUTED 0 ML IV ONE; -ADENOSINE 90 MG/30 ML INJ IV ONE; -CLOP75TA41 PO; +CLOP75TA70 PO
[2020-09-17 15:51] LABS: Basophils # (auto) 0.1 10 ^3/uL (0-0.2); Basophils % (auto) 0.7 % (0.0-2.0); Eosinophils # (auto) 0.5 10 ^3/uL (0-0.8); Eosinophils % (auto) 6.3 % (0.0-7.0); Hematocrit 47.1 % (41.0-53.0); Hemoglobin 16.5 g/dL (13.5-17.5); Lymphocytes # (auto) 1.7 10 ^3/uL (0.4-5.4); Lymphocytes % (auto) 20.7 % (10.0-50.0); Mean Corpuscular Hemoglobin 34.3 pg (28.0-32.0); Mean Corpuscular Volume 97.9 fL (80.0-100.0); Monocytes # (auto) 0.9 10 ^3/uL (0-1.3); Monocytes % (auto) 11.6 % (0.0-12.0); Neutrophils # (auto) 4.9 10 ^3/uL (1.6-8.6); Neutrophils % (auto) 60.7 % (37.0-80.0); Platelet Count (auto) 277 10^3/uL (140-450); Red Blood Cells 4.81 10^6/uL (4.5-5.90); Red Cell Distribution Width 13.5 % (11.8-14.3); White Blood Cell 8.1 10^3/uL (4.4-10.8)
[2020-09-17 15:52] LABS: Urine Blood 3+ /uL (Negative); Urine Specific Gravity 1.022 (1.001-1.035)
[2020-09-17 15:59] LABS: Albumin 3.6 g/dL (3.4-5.0); Potassium 4.1 mmol/L (3.5-5.1)
[2020-09-17 16:03] LABS: BUN/Creatinine Ratio 22.2; Total Protein 7.9 g/dL (6.4-8.2)
[2020-09-17 16:07] LABS: Free T4 (Free Thyroxine) 1.13 ng/dL (0.89-1.76)
[2020-09-17 16:08] LABS: Prostate Specific Antigen 3.49 ng/mL (0.0-4.0)
== END | disposition home or self-care (01) ==
LOC: Rad HDHVI 11:04
PROVIDERS: ATTEND Internal Medicine Cardiovascular Disease
DX: C61 Malignant neoplasm of prostate (principal); D51.3 Other dietary vitamin B12 deficiency anemia; I10 Essential (primary) hypertension; E11.9 Type 2 diabetes mellitus without complications; E55.9 Vitamin D deficiency, unspecified; D64.9 Anemia, unspecified; R00.2 Palpitations; R53.1 Weakness; R30.0 Dysuria; R06.02 Shortness of breath
CPT/HCPCS: 36415; 80053; 80061; 81003; 82306; 82607; 83036; 84153; 84403; 84439; 84443; 85025; 87086; 93306

== ENCOUNTER → 2020-09-27 | Outpatient (CLI) | payer MEDICARE, MEDICAID ==
[~2020-09-27] MED LIST changes: +LINEZOLID 600MG/300ML 300 ML IV ONE
[2020-09-27 13:26] VITALS: BP 151/69
[2020-09-27 15:52] VITALS: BP 159/85
== END | disposition home or self-care (01) ==
LOC: CHF HDHVI 13:25
PROVIDERS: ATTEND Internal Medicine Cardiovascular Disease
DX: N39.0 Urinary tract infection, site not specified (principal); R30.0 Dysuria; C61 Malignant neoplasm of prostate; I10 Essential (primary) hypertension; E11.9 Type 2 diabetes mellitus without complications
CPT/HCPCS: 96365; 96366; G0463; J2020

== ENCOUNTER → 2020-09-28 | Outpatient (CLI) | payer MEDICARE, MEDICAID ==
[2020-09-28 11:02] VITALS: BP 164/87
[2020-09-28 13:00] VITALS: BP 144/78
== END | disposition home or self-care (01) ==
LOC: CHF HDHVI 11:02
PROVIDERS: ATTEND Internal Medicine Cardiovascular Disease
DX: N39.0 Urinary tract infection, site not specified (principal); R30.0 Dysuria; C61 Malignant neoplasm of prostate; I10 Essential (primary) hypertension; E11.9 Type 2 diabetes mellitus without complications
CPT/HCPCS: 96365; 96366; G0463; J2020

== ENCOUNTER 2020-10-05 10:43 | Inpatient (IN) | payer MEDICARE, MEDICAID ==
[~2020-10-05] VITALS: Ht 167.6 cm; Wt 86.3 kg
[~2020-10-05 10:43] MED LIST changes: -LINEZOLID 600MG/300ML 300 ML IV ONE
[2020-10-05 10:58] LABS: Basophils # (auto) 0 10 ^3/uL (0-0.2); Basophils % (auto) 0.6 % (0.0-2.0); Eosinophils # (auto) 0.5 10 ^3/uL (0-0.8); Hematocrit 48.1 % (41.0-53.0); Hemoglobin 16.6 g/dL (13.5-17.5); Lymphocytes # (auto) 1.4 10 ^3/uL (0.4-5.4); Lymphocytes % (auto) 21.3 % (10.0-50.0); Mean Corpuscular Hemoglobin 33.6 pg (28.0-32.0); Mean Corpuscular Hgb Conc. 34.6 g/dL (32.0-36.0); Mean Corpuscular Volume 97.2 fL (80.0-100.0); Monocytes # (auto) 0.8 10 ^3/uL (0-1.3); Monocytes % (auto) 11.7 % (0.0-12.0); Neutrophils % (auto) 59.4 % (37.0-80.0); Nucleated Red Blood Cells % 0.1 %; Red Blood Cells 4.95 10^6/uL (4.5-5.90); Red Cell Distribution Width 13.4 % (11.8-14.3); White Blood Cell 6.7 10^3/uL (4.4-10.8)
[2020-10-05] MEDS ORDERED: SODIUM CHLORIDE 0.9% 1,000 ML IV ONE (11:00)
[2020-10-05] MEDS ORDERED: ONDANSETRON HCL 4 MG/2 ML VIAL ONE (11:04)
[2020-10-05 11:15] LABS: Albumin 3.5 g/dL (3.4-5.0); Anion Gap 6 (5-15); Blood Urea Nitrogen 19 mg/dL (7-18); Calcium 8.4 mg/dL (8.5-10.1); Carbon Dioxide 25 mmol/L (21-32); Chloride 108 mmol/L (98-107); Glucose 134 mg/dL (74-106); Sodium 139 mmol/L (136-145)
[2020-10-05] MEDS ORDERED: ONDANSETRON HCL 4 MG/2 ML VIAL IV ONE (11:15)
[2020-10-05 11:21] LABS: Alanine Aminotransferase 37 U/L (16-61); Alkaline Phosphatase 84 U/L (45-117); Aspartate Aminotransferase 21 U/L (15-37); BUN/Creatinine Ratio 18.8; Bilirubin, Total 0.9 mg/dL (0.2-1.0); GFR African American 91 mL/min; GFR Non-African American 75 mL/min; Total Protein 7.5 g/dL (6.4-8.2)
[2020-10-05 12:20] LABS: Urine Bacteria NONE SEEN /hpf (None Seen); Urine Blood Negative /uL (Negative); Urine Specific Gravity 1.013 (1.001-1.035); Urine WBC 1 /hpf (0 - 3)
[2020-10-05] MEDS ORDERED: KETOROLAC TROMETH 30 MG/ML 1ML VIAL IV ONE (13:00)
[2020-10-05] MEDS ORDERED: TAMSULOSIN HYDROCHLORIDE 0.4 MG CAP PO ONE (13:00)
[2020-10-05] MEDS ORDERED: NITROGLYCERIN 0.4 MG SL TAB SL PRN ×2 (13:30→23:00)
[2020-10-05] MEDS ORDERED: MORPHINE SULF INJ 2 MG/ML SYRINGE 1ML IV PRN ×3 (13:30→23:00)
[2020-10-05 22:32] VITALS: BP 144/96
[2020-10-05] MEDS ORDERED: HYDROcodone-ACET 5/325MG TAB PO PRN (23:00)
[2020-10-05] MEDS ORDERED: ACETAMINOPHEN 325 MG TAB PO PRN (23:00)
[2020-10-05] MEDS ORDERED: LORazepam 0.5 MG TAB PO PRN (23:00)
[2020-10-05] MEDS ORDERED: ALUM & MAG HYDROX-SIMETH LIQ(MAALOX) 30 ML PO PRN (23:00)
[2020-10-05] MEDS ORDERED: METOCLOPRAMIDE HCL 5MG/ml INJ 2ml VIAL IV PRN (23:00)
[2020-10-05 23:31] VITALS: BP 144/96
[2020-10-06] VITALS (7 sets, daily range): BP systolic 135–172; BP diastolic 68–99
[2020-10-06] MEDS: cefTRIAXone 1GM/50ML D5W 50 ML IV SCH ×2 (00:57→21:33)
[2020-10-06] MEDS: SODIUM CHLOR 0.9% PF (SALINE LOCK) 10ML VIAL/SYR IV SCH ×3 (06:01→21:33)
[2020-10-06] MEDS: LEVOTHYROXINE SODIUM 25 MCG TAB PO SCH (06:02)
[2020-10-06] MEDS: ASCORBIC ACID 500 MG TAB PO SCH (10:18)
[2020-10-06] MEDS: ASPirin 81 mg TAB PO SCH (10:18)
[2020-10-06] MEDS: ENOXAPARIN SOD 40 MG/0.4 ML SYRINGE SC SCH (10:18)
[2020-10-06] MEDS: CLOPIDOGREL BISULFATE 75 MG TAB PO SCH (10:18)
[2020-10-06] MEDS: METOPROLOL TARTRATE 25 MG TAB PO SCH ×2 (10:18→21:41)
[2020-10-06 12:02] LABS: Alcohol, Urine < 3.0 mg/dL (0-10); Amphetamine Screen, Urine NEGATIVE (NEGATIVE); Barbiturate Scree,Urine NEGATIVE (NEGATIVE); Benzodiazephine Screen, Urine NEGATIVE (NEGATIVE); Cannabinoid Screen, Urine NEGATIVE (NEGATIVE); Cocaine Screen, Urine NEGATIVE (NEGATIVE); Opiate Scree,Urine NEGATIVE (NEGATIVE); Phencyclidine Screen, Urine NEGATIVE (NEGATIVE)
[2020-10-06 16:53] LABS: BUN/Creatinine Ratio 15.2; Calcium 8.4 mg/dL (8.5-10.1); Potassium 3.7 mmol/L (3.5-5.1)
[2020-10-06] MEDS: hydrALAZINE HCL 20 MG/ML VL IV PRN (17:13)
[2020-10-06] MEDS: TAMSULOSIN HYDROCHLORIDE 0.4 MG CAP PO SCH (17:53)
[2020-10-06] MEDS ORDERED: TAMSULOSIN HYDROCHLORIDE 0.4 MG CAP PO SCH (18:00)
[2020-10-06] MEDS: ATORVASTATIN 20 MG TAB PO SCH (21:33)
[2020-10-07] MEDS: hydrALAZINE HCL 20 MG/ML VL IV PRN (04:05)
[2020-10-07 05:00] VITALS: BP_SYST 156; BP_SYST 158; BP_SYST 178; BP_DIAS 100; BP_DIAS 96; BP_DIAS 98
[2020-10-07] MEDS: SODIUM CHLOR 0.9% PF (SALINE LOCK) 10ML VIAL/SYR IV SCH ×3 (06:04→21:37)
[2020-10-07] MEDS: LEVOTHYROXINE SODIUM 25 MCG TAB PO SCH (06:04)
[2020-10-07 09:00] VITALS: BP 151/106
[2020-10-07] MEDS: METOPROLOL TARTRATE 25 MG TAB PO SCH ×2 (09:49→21:38)
[2020-10-07] MEDS: ASPirin 81 mg TAB PO SCH (09:49)
[2020-10-07] MEDS: CLOPIDOGREL BISULFATE 75 MG TAB PO SCH (09:50)
[2020-10-07] MEDS: ASCORBIC ACID 500 MG TAB PO SCH (09:50)
[2020-10-07] MEDS: ENOXAPARIN SOD 40 MG/0.4 ML SYRINGE SC SCH (09:51)
[2020-10-07] MEDS ORDERED: METOPROLOL TARTRATE 25 MG TAB PO ONE (10:30)
[2020-10-07 13:00] VITALS: BP 156/97
[2020-10-07 17:00] VITALS: BP 157/94
[2020-10-07] MEDS: TAMSULOSIN HYDROCHLORIDE 0.4 MG CAP PO SCH (18:00)
[2020-10-07] MEDS: ATORVASTATIN 20 MG TAB PO SCH (21:37)
[2020-10-07] MEDS: cefTRIAXone 1GM/50ML D5W 50 ML IV SCH (21:37)
[2020-10-07 22:00] VITALS: BP 148/98
[2020-10-08 05:00] VITALS: BP 118/79
[2020-10-08] MEDS: LEVOTHYROXINE SODIUM 25 MCG TAB PO SCH (06:08)
[2020-10-08] MEDS: SODIUM CHLOR 0.9% PF (SALINE LOCK) 10ML VIAL/SYR IV SCH ×3 (06:08→21:49)
[2020-10-08 06:42] LABS: Basophils # (auto) 0 10 ^3/uL (0-0.2); Basophils % (auto) 0.5 % (0.0-2.0); Eosinophils # (auto) 0.1 10 ^3/uL (0-0.8); Eosinophils % (auto) 1.4 % (0.0-7.0); Hematocrit 48.1 % (41.0-53.0); Lymphocytes # (auto) 1.5 10 ^3/uL (0.4-5.4); Lymphocytes % (auto) 16.2 % (10.0-50.0); Mean Corpuscular Hemoglobin 33.7 pg (28.0-32.0); Mean Corpuscular Hgb Conc. 35.3 g/dL (32.0-36.0); Mean Corpuscular Volume 95.2 fL (80.0-100.0); Monocytes # (auto) 1.7 10 ^3/uL (0-1.3); Monocytes % (auto) 17.6 % (0.0-12.0); Neutrophils # (auto) 6.2 10 ^3/uL (1.6-8.6); Neutrophils % (auto) 64.3 % (37.0-80.0); Nucleated Red Blood Cells % 0.1 %; Red Blood Cells 5.05 10^6/uL (4.5-5.90); Red Cell Distribution Width 13.4 % (11.8-14.3); White Blood Cell 9.6 10^3/uL (4.4-10.8)
[2020-10-08 07:00] LABS: BUN/Creatinine Ratio 14.4; Calcium 8.5 mg/dL (8.5-10.1); Potassium 3.5 mmol/L (3.5-5.1)
[2020-10-08 09:00] VITALS: BP 128/70
[2020-10-08] MEDS: ENOXAPARIN SOD 40 MG/0.4 ML SYRINGE SC SCH (10:00)
[2020-10-08] MEDS: ASPirin 81 mg TAB PO SCH (10:00)
[2020-10-08] MEDS: ASCORBIC ACID 500 MG TAB PO SCH (10:11)
[2020-10-08] MEDS: CLOPIDOGREL BISULFATE 75 MG TAB PO SCH (10:11)
[2020-10-08] MEDS: METOPROLOL TARTRATE 25 MG TAB PO SCH ×2 (10:12→21:48)
[2020-10-08] MEDS ORDERED: LIDOCAINE 2% JELLY 11ml (GLYDO) UR ONE (12:30)
[2020-10-08 13:00] VITALS: BP 119/76
[2020-10-08] MEDS ORDERED: POTASSIUM CHL 20 Meq TABLET PO ONE (13:00)
[2020-10-08 17:00] VITALS: BP 133/75
[2020-10-08] MEDS: TAMSULOSIN HYDROCHLORIDE 0.4 MG CAP PO SCH (18:05)
[2020-10-08] MEDS: cefTRIAXone 1GM/50ML D5W 50 ML IV SCH (21:48)
[2020-10-08] MEDS: ATORVASTATIN 20 MG TAB PO SCH (21:48)
[2020-10-08 22:00] VITALS: BP 119/61
[2020-10-09 05:00] VITALS: BP 110/69
[2020-10-09] MEDS: SODIUM CHLOR 0.9% PF (SALINE LOCK) 10ML VIAL/SYR IV SCH ×3 (05:35→21:15)
[2020-10-09] MEDS: LEVOTHYROXINE SODIUM 25 MCG TAB PO SCH (05:35)
[2020-10-09 07:04] LABS: Hematocrit 43.2 % (41.0-53.0); Hemoglobin 15.1 g/dL (13.5-17.5)
[2020-10-09 09:00] VITALS: BP 105/63
[2020-10-09] MEDS: ASCORBIC ACID 500 MG TAB PO SCH (11:03)
[2020-10-09] MEDS: METOPROLOL TARTRATE 25 MG TAB PO SCH ×2 (11:03→21:18)
[2020-10-09 13:00] VITALS: BP 120/74
[2020-10-09] MEDS ORDERED: FINASTERIDE 5 MG TAB PO ONE (14:30)
[2020-10-09 17:00] VITALS: BP 107/65
[2020-10-09] MEDS: TAMSULOSIN HYDROCHLORIDE 0.4 MG CAP PO SCH (21:14)
[2020-10-09] MEDS: ATORVASTATIN 20 MG TAB PO SCH (21:15)
[2020-10-09] MEDS: cefTRIAXone 1GM/50ML D5W 50 ML IV SCH (21:16)
[2020-10-09 21:44] VITALS: BP 115/66
[2020-10-10 05:45] VITALS: BP 115/62
[2020-10-10] MEDS: LEVOTHYROXINE SODIUM 25 MCG TAB PO SCH (06:21)
[2020-10-10] MEDS: SODIUM CHLOR 0.9% PF (SALINE LOCK) 10ML VIAL/SYR IV SCH ×3 (06:21→21:00)
[2020-10-10 09:00] VITALS: BP 93/50
[2020-10-10] MEDS: FINASTERIDE 5 MG TAB PO SCH (09:52)
[2020-10-10] MEDS: TAMSULOSIN HYDROCHLORIDE 0.4 MG CAP PO SCH ×2 (09:52→21:00)
[2020-10-10] MEDS: ASCORBIC ACID 500 MG TAB PO SCH (09:52)
[2020-10-10] MEDS: METOPROLOL TARTRATE 25 MG TAB PO SCH ×2 (09:52→21:00)
[2020-10-10 11:54] LABS: Basophils # (auto) 0 10 ^3/uL (0-0.2); Basophils % (auto) 0.6 % (0.0-2.0); Eosinophils # (auto) 0.4 10 ^3/uL (0-0.8); Eosinophils % (auto) 5.5 % (0.0-7.0); Hematocrit 45.9 % (41.0-53.0); Hemoglobin 15.8 g/dL (13.5-17.5); Lymphocytes # (auto) 1.5 10 ^3/uL (0.4-5.4); Lymphocytes % (auto) 18.7 % (10.0-50.0); Mean Corpuscular Hemoglobin 33.3 pg (28.0-32.0); Mean Corpuscular Hgb Conc. 34.4 g/dL (32.0-36.0); Mean Corpuscular Volume 96.8 fL (80.0-100.0); Monocytes # (auto) 0.9 10 ^3/uL (0-1.3); Monocytes % (auto) 11.1 % (0.0-12.0); Neutrophils # (auto) 5.1 10 ^3/uL (1.6-8.6); Neutrophils % (auto) 64.1 % (37.0-80.0); Nucleated Red Blood Cells % 0.1 %; Red Blood Cells 4.75 10^6/uL (4.5-5.90); Red Cell Distribution Width 13.4 % (11.8-14.3); White Blood Cell 7.9 10^3/uL (4.4-10.8)
[2020-10-10 12:36] VITALS: BP 146/59
[2020-10-10 12:57] LABS: BUN/Creatinine Ratio 22.5; Calcium 8.8 mg/dL (8.5-10.1); Potassium 3.5 mmol/L (3.5-5.1)
[2020-10-10 17:00] VITALS: BP 128/73
[2020-10-10] MEDS: cefTRIAXone 1GM/50ML D5W 50 ML IV SCH (21:00)
[2020-10-10] MEDS: ATORVASTATIN 20 MG TAB PO SCH (21:00)
[2020-10-10 22:00] VITALS: BP 90/59
[2020-10-11 05:30] VITALS: BP 148/88
[2020-10-11] MEDS: LEVOTHYROXINE SODIUM 25 MCG TAB PO SCH (05:54)
[2020-10-11] MEDS: SODIUM CHLOR 0.9% PF (SALINE LOCK) 10ML VIAL/SYR IV SCH ×2 (05:54→14:57)
[2020-10-11 09:00] VITALS: BP 110/59
[2020-10-11] MEDS: FINASTERIDE 5 MG TAB PO SCH (12:34)
[2020-10-11] MEDS: TAMSULOSIN HYDROCHLORIDE 0.4 MG CAP PO SCH (12:34)
[2020-10-11] MEDS: METOPROLOL TARTRATE 25 MG TAB PO SCH (12:34)
[2020-10-11] MEDS: ASCORBIC ACID 500 MG TAB PO SCH (12:35)
[2020-10-11] MEDS ORDERED: FIN5T PO (12:48)
[2020-10-11] MEDS ORDERED: MET25T PO (12:48)
[2020-10-11] MEDS ORDERED: TAM04C PO (12:48)
[2020-10-11 13:00] VITALS: BP 135/61
[2020-10-11 13:40] VITALS: BP 110/59
== END 2020-10-11 14:30 | disposition home health service (06) | DRG 312 ==
LOC: ER 10:43 → EDBD 10:43 → TELE 13:22 → TELE-EAST 20:48
PROVIDERS: ADMIT Hospitalist; ATTEND Internal Medicine
DX: I95.1 Orthostatic hypotension (principal); T83.511A Infection and inflammatory reaction due to indwelling urethral catheter, initial encounter; G91.2 (Idiopathic) normal pressure hydrocephalus; N13.30 Unspecified hydronephrosis; I25.10 Atherosclerotic heart disease of native coronary artery without angina pectoris; Z66 Do not resuscitate; I25.5 Ischemic cardiomyopathy; N40.0 Benign prostatic hyperplasia without lower urinary tract symptoms; E03.9 Hypothyroidism, unspecified; E78.00 Pure hypercholesterolemia, unspecified; E11.9 Type 2 diabetes mellitus without complications; Z20.822 Contact with and (suspected) exposure to COVID-19; I11.9 Hypertensive heart disease without heart failure; E78.5 Hyperlipidemia, unspecified; Z86.73 Personal history of transient ischemic attack (TIA), and cerebral infarction without residual deficits; Z90.49 Acquired absence of other specified parts of digestive tract; Z80.0 Family history of malignant neoplasm of digestive organs; Z80.41 Family history of malignant neoplasm of ovary; Y92.89 Other specified places as the place of occurrence of the external cause; Z87.442 Personal history of urinary calculi
CPT/HCPCS: 36415; 71045; 74018; 74176; 76775; 80048; 80053; 80307; 81001; 82533; 83880; 84154; 84484; 85014; 85018; 85025; 85049; 87040; 87081; 87086; 87088; 87186; 87426; 93005; 96361; 96374; 96375; 97163; G0378; J0696; J1885; J2405

== ENCOUNTER → 2021-07-31 | Outpatient (CLI) | payer OTHER, MEDICAID, MEDICARE ==
[~2021-07-31] MED LIST changes: +FIN5T PO; +LEVO500T31 PO; +MET25T PO; -METO25TA5 PO; +ZINC220C8 PO
[2021-07-31 11:36] LABS: Basophils # (auto) 0 10 ^3/uL (0-0.2); Basophils % (auto) 0.5 % (0.0-2.0); Eosinophils # (auto) 0.6 10 ^3/uL (0-0.8); Eosinophils % (auto) 9.1 % (0.0-7.0); Hematocrit 49.1 % (41.0-53.0); Hemoglobin 16.5 g/dL (13.5-17.5); Lymphocytes # (auto) 0.8 10 ^3/uL (0.4-5.4); Lymphocytes % (auto) 11.5 % (10.0-50.0); Mean Corpuscular Hemoglobin 33.3 pg (28.0-32.0); Mean Corpuscular Hgb Conc. 33.5 g/dL (32.0-36.0); Mean Corpuscular Volume 99.4 fL (80.0-100.0); Monocytes # (auto) 0.6 10 ^3/uL (0-1.3); Monocytes % (auto) 9.7 % (0.0-12.0); Neutrophils # (auto) 4.6 10 ^3/uL (1.6-8.6); Neutrophils % (auto) 69.2 % (37.0-80.0); Nucleated Red Blood Cells % 0.1 %; Red Blood Cells 4.94 10^6/uL (4.5-5.90); Red Cell Distribution Width 13.8 % (11.8-14.3); White Blood Cell 6.6 10^3/uL (4.4-10.8)
[2021-07-31 11:47] LABS: Urine Bacteria NONE SEEN /hpf (None Seen); Urine Blood Negative /uL (Negative); Urine Mucus FEW (None Seen); Urine Specific Gravity 1.019 (1.001-1.035); Urine WBC 6 /hpf (0 - 3)
[2021-07-31 12:27] LABS: Albumin 3.4 g/dL (3.4-5.0); Calcium 9.4 mg/dL (8.5-10.1); Potassium 4.5 mmol/L (3.5-5.1)
[2021-07-31 12:33] LABS: Bilirubin, Total 1.1 mg/dL (0.2-1.0); Total Protein 7.5 g/dL (6.4-8.2)
== END | disposition home or self-care (01) ==
LOC: LAB 10:46
PROVIDERS: ATTEND Nurse Practitioner
DX: I10 Essential (primary) hypertension (principal); E78.5 Hyperlipidemia, unspecified; R39.15 Urgency of urination
CPT/HCPCS: 36415; 80053; 80061; 81001; 84153; 85025

== ENCOUNTER 2021-08-11 07:39 | Inpatient (IN) | payer MEDICARE, MEDICAID ==
[~2021-08-11] VITALS: Ht 162.6 cm; Wt 84.7 kg
[~2021-08-11 07:39] MED LIST changes: -ASCO500T11 PO; -CLOP75TA70 PO; -FIN5T PO; -TICA90TA PO; -ZINC220C8 PO
[2021-08-11 11:44] LABS: Urine Bacteria NONE SEEN /hpf (None Seen); Urine Blood 3+ /uL (Negative)
[2021-08-11 12:00] LABS: Urine Specific Gravity 1.029 (1.001-1.035)
[2021-08-11 12:01] LABS: Urine WBC 0-3 /hpf (0 - 3)
[2021-08-11] MEDS ORDERED: NITROGLYCERIN 0.4 MG SL TAB SL PRN (13:15)
[2021-08-11] MEDS ORDERED: ONDANSETRON HCL 4 MG/2 ML VIAL IV PRN ×2 (13:15→19:45)
[2021-08-11] MEDS ORDERED: cefTRIAXone 1GM/50ML D5W 50 ML IV ONE (13:15)
[2021-08-11] MEDS ORDERED: MORPHINE SULFATE INJECTION 2 MG/ML SYRG IV PRN ×3 (13:15→19:45)
[2021-08-11 15:57] VITALS: BP 136/75
[2021-08-11] MEDS: SODIUM CHLORIDE 0.9% 1,000 ML IV SCH (16:34)
[2021-08-11] MEDS ORDERED: METOPROLOL SUCCINATE XL 50 MG TAB PO ONE (19:45)
[2021-08-11] MEDS ORDERED: FAMOTIDINE (10MG/ML) 2ML VL IV ONE (19:45)
[2021-08-11] MEDS ORDERED: DOCUSATE SOD 100 MG CAP PO PRN (19:45)
[2021-08-11] MEDS ORDERED: ACETAMINOPHEN 325 MG TAB PO PRN (19:45)
[2021-08-11] MEDS ORDERED: LABETALOL HCL 5 MG/ML 4ML SYRINGE IV PRN (19:45)
[2021-08-11] MEDS ORDERED: hydrALAZINE HCL 20 MG/ML VL IV PRN (19:45)
[2021-08-11] MEDS ORDERED: HYDROcodone-ACET 5/325MG TAB PO PRN (19:45)
[2021-08-11] MEDS ORDERED: LORazepam 0.5 MG TAB PO PRN (19:45)
[2021-08-11 22:00] VITALS: BP 140/84
[2021-08-11] MEDS: ATORVASTATIN 20 MG TAB PO SCH (22:36)
[2021-08-11 23:34] LABS: INR 1.11 (0.9-1.15); Partial Thromboplastin Time 26.2 sec (23.6-33.0)
[2021-08-11 23:52] LABS: Magnesium 2.2 mg/dL (1.6-2.6); Phosphorus 2.7 mg/dL (2.5-4.90)
[2021-08-12 04:59] VITALS: BP 143/79
[2021-08-12] MEDS: SODIUM CHLORIDE 0.9% 1,000 ML IV SCH (06:34)
[2021-08-12] MEDS: LEVOTHYROXINE SODIUM 50 MCG TAB PO SCH (06:34)
[2021-08-12 06:39] LABS: INR 1.14 (0.9-1.15); Partial Thromboplastin Time 28.5 sec (23.6-33.0)
[2021-08-12 06:42] LABS: Magnesium 1.9 mg/dL (1.6-2.6); Potassium 3.1 mmol/L (3.5-5.1)
[2021-08-12 06:53] LABS: Albumin 2.8 g/dL (3.4-5.0); Bilirubin, Total 1.4 mg/dL (0.2-1.0); CRP High Sensitivity 2.56 mg/dL (< 0.3); Calcium 8.3 mg/dL (8.5-10.1); Phosphorus 2.2 mg/dL (2.5-4.90); Total Protein 6.6 g/dL (6.4-8.2); Uric Acid 7.9 mg/dL (3.5-7.2)
[2021-08-12 07:36] LABS: Thyroid Stimulating Hormone 2.43 uIU/mL (0.358-3.74)
[2021-08-12 08:10] VITALS: BP 147/78
[2021-08-12 09:00] VITALS: BP 147/78
[2021-08-12] MEDS: cefTRIAXone 1GM/50ML D5W 50 ML IV SCH (09:52)
[2021-08-12] MEDS: METOPROLOL SUCCINATE XL 50 MG TAB PO SCH (09:56)
[2021-08-12] MEDS: FAMOTIDINE (10MG/ML) 2ML VL IV SCH (09:57)
[2021-08-12 13:00] VITALS: BP 132/74
[2021-08-12] MEDS ORDERED: MAGNESIUM OXIDE 400 MG TAB PO ONE (13:00)
[2021-08-12] MEDS ORDERED: POTASSIUM CHL 20 Meq TABLET PO ONE (13:00)
[2021-08-12 13:12] LABS: Hemoglobin 14.7 g/dL (13.5-17.5); Mean Corpuscular Hemoglobin 33.4 pg (28.0-32.0); Mean Corpuscular Hgb Conc. 34.1 g/dL (32.0-36.0); Mean Corpuscular Volume 97.8 fL (80.0-100.0); Red Blood Cells 4.39 10^6/uL (4.5-5.90); Red Cell Distribution Width 13.3 % (11.8-14.3); White Blood Cell 9.8 10^3/uL (4.4-10.8)
[2021-08-12 13:23] LABS: Basophils % (manual) 0 (0.0-2.0); Blast Cells 0; Metamyelocytes % 0; Myelocytes % 0; Promyelocytes % 0; Reactive Lymphocytes 0
[2021-08-12 16:42] VITALS: BP 140/60
[2021-08-12 17:07] LABS: Band Neutrophils % (manual) 9; Eosinophils % (manual) 2 (0-7); Lymphocytes % (manual) 16 (10.0-50.0); Monocytes % (manual) 9 (0-12)
[2021-08-12] MEDS: TAMSULOSIN HYDROCHLORIDE 0.4 MG CAP PO SCH (18:00)
[2021-08-12] MEDS: ATORVASTATIN 20 MG TAB PO SCH (21:35)
[2021-08-12 22:00] VITALS: BP 111/50
[2021-08-13 05:00] VITALS: BP 133/72
[2021-08-13] MEDS: LEVOTHYROXINE SODIUM 50 MCG TAB PO SCH (06:20)
[2021-08-13 07:07] LABS: Calcium 8.4 mg/dL (8.5-10.1); Magnesium 2.4 mg/dL (1.6-2.6); Potassium 3.5 mmol/L (3.5-5.1)
[2021-08-13 07:09] LABS: BUN/Creatinine Ratio 14.6
[2021-08-13 07:11] LABS: Basophils # (auto) 0 10 ^3/uL (0-0.2); Basophils % (auto) 0.5 % (0.0-2.0); Eosinophils # (auto) 0.3 10 ^3/uL (0-0.8); Eosinophils % (auto) 3.4 % (0.0-7.0); Hematocrit 39.8 % (41.0-53.0); Lymphocytes # (auto) 1.6 10 ^3/uL (0.4-5.4); Lymphocytes % (auto) 21.5 % (10.0-50.0); Mean Corpuscular Hemoglobin 33.7 pg (28.0-32.0); Mean Corpuscular Hgb Conc. 34.7 g/dL (32.0-36.0); Mean Corpuscular Volume 97.2 fL (80.0-100.0); Neutrophils # (auto) 4.4 10 ^3/uL (1.6-8.6); Neutrophils % (auto) 60.6 % (37.0-80.0); Red Blood Cells 4.09 10^6/uL (4.5-5.90); Red Cell Distribution Width 13.3 % (11.8-14.3); White Blood Cell 7.3 10^3/uL (4.4-10.8)
[2021-08-13 07:17] LABS: Hemoglobin 13.8 g/dL (13.5-17.5)
[2021-08-13] MEDS: cefTRIAXone 1GM/50ML D5W 50 ML IV SCH (08:18)
[2021-08-13] MEDS: FAMOTIDINE (10MG/ML) 2ML VL IV SCH (08:18)
[2021-08-13] MEDS: METOPROLOL SUCCINATE XL 50 MG TAB PO SCH (08:19)
[2021-08-13 09:11] VITALS: BP 141/77
[2021-08-13 13:03] VITALS: BP 138/70
[2021-08-13 14:00] VITALS: BP 138/70
[2021-08-13] MEDS: TAMSULOSIN HYDROCHLORIDE 0.4 MG CAP PO SCH (17:04)
== END 2021-08-13 17:35 | disposition home or self-care (01) | DRG 920 ==
LOC: ER 07:39 → OVERFLOW 13:15 → EAST 20:28 → CENTRAL 08-12 13:17
PROVIDERS: ADMIT Hospitalist; ATTEND Internal Medicine
DX: N99.820 Postprocedural hemorrhage of a genitourinary system organ or structure following a genitourinary system procedure (principal); G91.2 (Idiopathic) normal pressure hydrocephalus; N13.2 Hydronephrosis with renal and ureteral calculous obstruction; I25.10 Atherosclerotic heart disease of native coronary artery without angina pectoris; I25.5 Ischemic cardiomyopathy; I11.9 Hypertensive heart disease without heart failure; R31.0 Gross hematuria; N40.0 Benign prostatic hyperplasia without lower urinary tract symptoms; F03.90 Unspecified dementia, unspecified severity, without behavioral disturbance, psychotic disturbance, mood disturbance, and anxiety; E03.8 Other specified hypothyroidism; Y83.8 Other surgical procedures as the cause of abnormal reaction of the patient, or of later complication, without mention of misadventure at the time of the procedure; E78.5 Hyperlipidemia, unspecified; I35.1 Nonrheumatic aortic (valve) insufficiency; Z79.82 Long term (current) use of aspirin; Z80.0 Family history of malignant neoplasm of digestive organs; Z85.038 Personal history of other malignant neoplasm of large intestine; Z83.3 Family history of diabetes mellitus; Z87.442 Personal history of urinary calculi; Z90.49 Acquired absence of other specified parts of digestive tract; Z90.79 Acquired absence of other genital organ(s); Z95.5 Presence of coronary angioplasty implant and graft; Z79.899 Other long term (current) drug therapy; Y92.89 Other specified places as the place of occurrence of the external cause
CPT/HCPCS: 36415; 74176; 80048; 80053; 80061; 81001; 82550; 82728; 83615; 83690; 83735; 83880; 84100; 84443; 84484; 84550; 85007; 85025; 85027; 85379; 85610; 85652; 85730; 86141; 86850; 86900; 86901; 87040; 87081; 87086; 96361; 96365; 96375; G0378; J0696; J3490

== ENCOUNTER → 2021-09-16 | Outpatient (CLI) | payer MEDICARE, MEDICAID ==
[~2021-09-16] MED LIST changes: -LEVO500T31 PO
[2021-09-16 15:42] LABS: Basophils # (auto) 0.1 10 ^3/uL (0-0.2); Eosinophils # (auto) 0.3 10 ^3/uL (0-0.8); Eosinophils % (auto) 4.2 % (0.0-7.0); Hematocrit 44.8 % (41.0-53.0); Hemoglobin 15.1 g/dL (13.5-17.5); Lymphocytes # (auto) 1.1 10 ^3/uL (0.4-5.4); Lymphocytes % (auto) 17.7 % (10.0-50.0); Mean Corpuscular Hemoglobin 33.3 pg (28.0-32.0); Mean Corpuscular Hgb Conc. 33.6 g/dL (32.0-36.0); Mean Corpuscular Volume 99.1 fL (80.0-100.0); Monocytes # (auto) 0.7 10 ^3/uL (0-1.3); Monocytes % (auto) 11.4 % (0.0-12.0); Neutrophils # (auto) 4.1 10 ^3/uL (1.6-8.6); Neutrophils % (auto) 65.7 % (37.0-80.0); Red Blood Cells 4.52 10^6/uL (4.5-5.90); Red Cell Distribution Width 13.4 % (11.8-14.3); White Blood Cell 6.2 10^3/uL (4.4-10.8)
[2021-09-16 15:54] LABS: Anion Gap 8 (5-15); Blood Urea Nitrogen 17 mg/dL (7-18); Calcium 8.5 mg/dL (8.5-10.1); Carbon Dioxide 23 mmol/L (21-32); Chloride 110 mmol/L (98-107); Glucose 101 mg/dL (74-106); Potassium 3.7 mmol/L (3.5-5.1); Sodium 141 mmol/L (136-145)
[2021-09-16 15:56] LABS: BUN/Creatinine Ratio 18.3; GFR African American 99 mL/min; GFR Non-African American 82 mL/min
== END | disposition home or self-care (01) ==
LOC: Rad HDHVI 13:04
PROVIDERS: ATTEND Internal Medicine Cardiovascular Disease
DX: I35.1 Nonrheumatic aortic (valve) insufficiency (principal); I25.10 Atherosclerotic heart disease of native coronary artery without angina pectoris; I10 Essential (primary) hypertension; D64.9 Anemia, unspecified
CPT/HCPCS: 36415; 80048; 85025; 93306

== ENCOUNTER → 2021-09-23 | Outpatient (CLI) | payer MEDICARE, MEDICAID ==
[~2021-09-23] VITALS: Ht 167.6 cm; Wt 80.3 kg
[~2021-09-23] MED LIST changes: +ADENOSINE 67 MG in GIVE UN-DILUTED 0 ML IV ONE; +ADENOSINE 90 MG/30 ML INJ IV ONE; +LEVO500T31 PO
== END | disposition home or self-care (01) ==
LOC: Rad HDHVI 13:20
PROVIDERS: ATTEND Internal Medicine Cardiovascular Disease
DX: I25.10 Atherosclerotic heart disease of native coronary artery without angina pectoris (principal); E78.00 Pure hypercholesterolemia, unspecified; I10 Essential (primary) hypertension; E78.5 Hyperlipidemia, unspecified; Z95.5 Presence of coronary angioplasty implant and graft
CPT/HCPCS: 78452; 93005; 96374; 96375; A9500; J0153

== ENCOUNTER 2021-10-07 17:55 | Inpatient (IN) | payer MEDICARE, MEDICAID ==
[~2021-10-07] VITALS: Ht 167.6 cm; Wt 86.4 kg
[~2021-10-07 17:55] MED LIST changes: -ADENOSINE 67 MG in GIVE UN-DILUTED 0 ML IV ONE; -ADENOSINE 90 MG/30 ML INJ IV ONE; -LEVO500T31 PO
[2021-10-07 19:13] LABS: Basophils # (auto) 0.1 10 ^3/uL (0-0.2); Basophils % (auto) 1.5 % (0.0-2.0); Eosinophils # (auto) 0.4 10 ^3/uL (0-0.8); Eosinophils % (auto) 5.7 % (0.0-7.0); Hematocrit 48.3 % (41.0-53.0); Hemoglobin 15.7 g/dL (13.5-17.5); Lymphocytes # (auto) 1.2 10 ^3/uL (0.4-5.4); Lymphocytes % (auto) 16.4 % (10.0-50.0); Mean Corpuscular Hemoglobin 32.1 pg (28.0-32.0); Mean Corpuscular Hgb Conc. 32.5 g/dL (32.0-36.0); Mean Corpuscular Volume 98.8 fL (80.0-100.0); Monocytes # (auto) 0.8 10 ^3/uL (0-1.3); Monocytes % (auto) 11.3 % (0.0-12.0); Neutrophils # (auto) 4.6 10 ^3/uL (1.6-8.6); Neutrophils % (auto) 65.1 % (37.0-80.0); Nucleated Red Blood Cells % 0.1 %; Red Blood Cells 4.89 10^6/uL (4.5-5.90); Red Cell Distribution Width 13.5 % (11.8-14.3)
[2021-10-07 19:31] LABS: Albumin 3.5 g/dL (3.4-5.0); BUN/Creatinine Ratio 12.3; Calcium 8.8 mg/dL (8.5-10.1); Potassium 3.8 mmol/L (3.5-5.1)
[2021-10-07 19:33] LABS: Bilirubin, Total 0.7 mg/dL (0.2-1.0); Total Protein 7.6 g/dL (6.4-8.2)
[2021-10-07] MEDS ORDERED: MORPHINE SULFATE 4 MG/ML SYR/VIAL IV ONE (20:00)
[2021-10-07 20:24] LABS: Urine Bacteria FEW /hpf (None Seen); Urine Blood 3+ /uL (Negative); Urine Mucus FEW (None Seen); Urine Specific Gravity 1.019 (1.001-1.035); Urine WBC 79 /hpf (0 - 3)
[2021-10-07] MEDS ORDERED: cefTRIAXone 1GM/50ML D5W 50 ML IV ONE (21:00)
[2021-10-07] MEDS ORDERED: ACETAMINOPHEN 325 MG TAB PO PRN (21:00)
[2021-10-07] MEDS ORDERED: HYDROcodone-ACET 5/325MG TAB PO PRN (21:00)
[2021-10-07] MEDS ORDERED: ONDANSETRON HCL 4 MG/2 ML VIAL IV PRN (21:00)
[2021-10-07] MEDS: METOPROLOL TARTRATE 25 MG TAB PO SCH (21:45)
[2021-10-07] MEDS: ATORVASTATIN 20 MG TAB PO SCH (21:45)
[2021-10-08 06:49] LABS: Basophils # (auto) 0.1 10 ^3/uL (0-0.2); Basophils % (auto) 0.5 % (0.0-2.0); Eosinophils # (auto) 0.1 10 ^3/uL (0-0.8); Eosinophils % (auto) 0.6 % (0.0-7.0); Hematocrit 47.5 % (41.0-53.0); Hemoglobin 16.2 g/dL (13.5-17.5); Lymphocytes % (auto) 8.4 % (10.0-50.0); Mean Corpuscular Hemoglobin 33.1 pg (28.0-32.0); Mean Corpuscular Volume 97.3 fL (80.0-100.0); Monocytes # (auto) 1.2 10 ^3/uL (0-1.3); Monocytes % (auto) 10.8 % (0.0-12.0); Neutrophils # (auto) 9.2 10 ^3/uL (1.6-8.6); Neutrophils % (auto) 79.7 % (37.0-80.0); Nucleated Red Blood Cells % 0.1 %; Red Blood Cells 4.89 10^6/uL (4.5-5.90); Red Cell Distribution Width 13.4 % (11.8-14.3); White Blood Cell 11.5 10^3/uL (4.4-10.8)
[2021-10-08] MEDS: LEVOTHYROXINE SODIUM 25 MCG TAB PO SCH (07:00)
[2021-10-08 07:04] LABS: Albumin 3.5 g/dL (3.4-5.0); Calcium 9.3 mg/dL (8.5-10.1); Potassium 4.1 mmol/L (3.5-5.1)
[2021-10-08 07:06] LABS: BUN/Creatinine Ratio 12.7
[2021-10-08 07:09] LABS: Bilirubin, Total 0.9 mg/dL (0.2-1.0); Total Protein 7.7 g/dL (6.4-8.2)
[2021-10-08 08:17] VITALS: BP 149/93
[2021-10-08] MEDS ORDERED: IOHEXOL 300 MG/ML 100ML BOTTLE IJ ONE (09:38)
[2021-10-08] MEDS: cefTRIAXone 1GM/50ML D5W 50 ML IV SCH (09:54)
[2021-10-08] MEDS: METOPROLOL TARTRATE 25 MG TAB PO SCH ×2 (09:55→21:43)
[2021-10-08 10:05] LABS: INR 1.03 (0.9-1.15); Partial Thromboplastin Time 27.8 sec (24.6-33.4)
[2021-10-08 10:23] VITALS: BP 181/99
[2021-10-08] MEDS ORDERED: ceFAZolin 1GM/50ML 100 ML IV ONE (11:54)
[2021-10-08] MEDS ORDERED: ONDANSETRON HCL 4 MG/2 ML VIAL ONE (12:30)
[2021-10-08] MEDS ORDERED: LIDOCAINE 2% (LOCAL ANESTH.) PF 5ml SDV ONE (12:30)
[2021-10-08] MEDS ORDERED: PROPOFOL 10 MG/ML 20 ML IV ONE (12:30)
[2021-10-08] MEDS ORDERED: MIDAZOLAM HCL 2MG/2ML 2ml VIAL (1mg/ml) ONE (12:32)
[2021-10-08] MEDS ORDERED: fentaNYL CITRATE 100 MCG/2 ML VL ONE (12:32)
[2021-10-08] MEDS ORDERED: ROCURONIUM 10MG/ML 10ML VIAL IV ONE (12:32)
[2021-10-08] MEDS ORDERED: GLYCOPYRROLATE 0.2 MG/ML 1ML VIAL ONE (13:37)
[2021-10-08] MEDS ORDERED: NEOSTIGMINE 1 MG/ML INJ (10mg/10ML VIAL) ONE (13:37)
[2021-10-08] MEDS ORDERED: HYDROmorphone HCL 2 MG/ML VL/or syr IV PRN ×2 (14:00)
[2021-10-08] MEDS ORDERED: ONDANSETRON HCL 4 MG/2 ML VIAL IV PRN (14:00)
[2021-10-08 16:41] VITALS: BP 113/75
[2021-10-08] MEDS: TAMSULOSIN HYDROCHLORIDE 0.4 MG CAP PO SCH (18:00)
[2021-10-08] MEDS: ATORVASTATIN 20 MG TAB PO SCH (21:42)
[2021-10-08 23:02] VITALS: BP 142/79
[2021-10-09 04:42] VITALS: BP 115/67
[2021-10-09] MEDS: LEVOTHYROXINE SODIUM 25 MCG TAB PO SCH (06:53)
[2021-10-09 09:00] VITALS: BP 104/65
[2021-10-09] MEDS: cefTRIAXone 1GM/50ML D5W 50 ML IV SCH (09:30)
[2021-10-09] MEDS: METOPROLOL TARTRATE 25 MG TAB PO SCH (09:56)
[2021-10-09 13:00] VITALS: BP 116/66
[2021-10-09] MEDS ORDERED: TAM04C PO (14:51)
[2021-10-09] MEDS ORDERED: MAGNTAB16 PO (14:51)
[2021-10-09] MEDS ORDERED: LEVO500T31 PO (14:51)
[2021-10-09] MEDS ORDERED: LACTCAP35 PO (14:51)
[2021-10-09 17:02] VITALS: BP 116/66
[2021-10-09] MEDS: TAMSULOSIN HYDROCHLORIDE 0.4 MG CAP PO SCH (18:00)
== END 2021-10-09 17:45 | disposition home or self-care (01) | DRG 699 ==
LOC: ER 17:55 → OVERFLOW 20:55 → EAST 10-08 08:00
PROVIDERS: ADMIT Nurse Practitioner; ATTEND Internal Medicine
PROC: 0TP98DZ Removal of Intraluminal Device from Ureter, Via Natural or Artificial Opening Endoscopic (ICD-10-PCS; 2021-10-08)
PROC: 0TC78ZZ Extirpation of Matter from Left Ureter, Via Natural or Artificial Opening Endoscopic (ICD-10-PCS; principal; 2021-10-08 12:28)
DX: T83.89XA Other specified complication of genitourinary prosthetic devices, implants and grafts, initial encounter (principal); G91.2 (Idiopathic) normal pressure hydrocephalus; N39.0 Urinary tract infection, site not specified; N20.1 Calculus of ureter; Y83.8 Other surgical procedures as the cause of abnormal reaction of the patient, or of later complication, without mention of misadventure at the time of the procedure; Y92.89 Other specified places as the place of occurrence of the external cause; E11.9 Type 2 diabetes mellitus without complications; E78.5 Hyperlipidemia, unspecified; F03.90 Unspecified dementia, unspecified severity, without behavioral disturbance, psychotic disturbance, mood disturbance, and anxiety; I10 Essential (primary) hypertension; R31.9 Hematuria, unspecified; Z20.822 Contact with and (suspected) exposure to COVID-19; I25.10 Atherosclerotic heart disease of native coronary artery without angina pectoris; Z80.0 Family history of malignant neoplasm of digestive organs; Z83.3 Family history of diabetes mellitus; Z86.73 Personal history of transient ischemic attack (TIA), and cerebral infarction without residual deficits; Z87.442 Personal history of urinary calculi; Z90.49 Acquired absence of other specified parts of digestive tract
CPT/HCPCS: 36415; 71045; 74018; 76000; 80053; 81001; 85025; 85610; 85730; 87081; 96365; 96375; G0378; J0690; J0696; J2001; J2250; J2405; J2704

== ENCOUNTER 2023-06-07 11:52 | Inpatient (IN) | payer MEDICARE, MEDICAID ==
[~2023-06-07] VITALS: Ht 167.6 cm; Wt 71.0 kg
[~2023-06-07 11:52] MED LIST changes: +LEVO500T31 PO; +OMEG-20 PO; -OMEG100078 PO; -TAM04C PO; +TAMS-35 PO
[2023-06-07] MEDS: SODIUM CHLORIDE 0.9% 500 ML IVB ONE (12:40)
[2023-06-07 12:41] VITALS: PULSE 87; RESP 16; O2SAT 95
[2023-06-07 12:44] LABS: Urine Bacteria FEW /hpf (None Seen); Urine Blood Negative /uL (Negative); Urine Clarity Clear (Clear); Urine Color Yellow (Yellow); Urine Mucus FEW (None Seen); Urine Protein, UAD Negative (Negative); Urine Specific Gravity 1.028 (1.001-1.035); Urine WBC 2 /hpf (0 - 3)
[2023-06-07 13:04] LABS: Basophils # (auto) 0 10 ^3/uL (0-0.2); Basophils % (auto) 0.5 % (0.0-2.0); Eosinophils # (auto) 0.3 10 ^3/uL (0-0.8); Eosinophils % (auto) 4.1 % (0.0-7.0); Hematocrit 49.7 % (41.0-53.0); Hemoglobin 16.6 g/dL (13.5-17.5); Lymphocytes # (auto) 1.6 10 ^3/uL (0.4-5.4); Lymphocytes % (auto) 22.6 % (10.0-50.0); Mean Corpuscular Hemoglobin 33.5 pg (28.0-32.0); Mean Corpuscular Hgb Conc. 33.4 g/dL (32.0-36.0); Mean Corpuscular Volume 100.3 fL (80.0-100.0); Monocytes # (auto) 0.8 10 ^3/uL (0-1.3); Monocytes % (auto) 11.7 % (0.0-12.0); Neutrophils # (auto) 4.4 10 ^3/uL (1.6-8.6); Neutrophils % (auto) 61.1 % (37.0-80.0); Nucleated Red Blood Cells % 0.1 %; Red Blood Cells 4.96 10^6/uL (4.5-5.90); Red Cell Distribution Width 13.3 % (11.8-14.3); White Blood Cell 7.1 10^3/uL (4.4-10.8)
[2023-06-07 13:24] LABS: Alanine Aminotransferase 17 U/L (7-40); Albumin 3.9 g/dL (3.2-4.8); Alkaline Phosphatase 88 U/L (46-116); Anion Gap 2 (5-15); Aspartate Aminotransferase 19 U/L (13-40); BUN/Creatinine Ratio 13.5 (10.0-20.0); Blood Alcohol < 3.0 mg/dL (<10); Blood Urea Nitrogen 13 mg/dL (9-23); Calcium 9.4 mg/dL (8.5-10.1); Carbon Dioxide 29 mmol/L (20-30); Chloride 108 mmol/L (98-107); Glucose 107 mg/dL (74-106); Potassium 4.1 mmol/L (3.5-5.1); Sodium 139 mmol/L (136-145)
[2023-06-07 13:25] LABS: Bilirubin, Total 1.1 mg/dL (0.2-1.0); Total Protein 6.6 g/dL (5.7-8.2)
[2023-06-07 13:39] LABS: INR 1.08 (0.9-1.15); Partial Thromboplastin Time 25.3 SEC (24.5-34.5); Prothrombin Time 11.3 sec (9.3-11.8)
[2023-06-07 13:43] LABS: Magnesium 2.3 mg/dL (1.6-2.6)
[2023-06-07] MEDS ORDERED: ACETAMINOPHEN 325 MG TAB PO PRN (15:00)
[2023-06-07] MEDS: SODIUM CHLORIDE 0.9% 1,000 ML IV SCH (15:00)
[2023-06-07] MEDS ORDERED: NITROGLYCERIN 0.4 MG SL TAB SL PRN (15:00)
[2023-06-07] MEDS ORDERED: hydrALAZINE HCL 20 MG/ML VL IV PRN (15:00)
[2023-06-07] MEDS ORDERED: DEXTROSE (50%) 50ML SYRG IV PRN (15:00)
[2023-06-07] MEDS ORDERED: MORPHINE SULFATE INJ 2 MG/ml SYRG IV PRN (15:00)
[2023-06-07 15:18] LABS: Triglycerides 102 mg/dL (< 150)
[2023-06-07 15:19] LABS: LDL Cholesterol 118 mg/dL (< 100)
[2023-06-07 15:20] LABS: Cholesterol 166 mg/dL (< 200); HDL Cholesterol 46 mg/dL (40-59)
[2023-06-07] MEDS: InsuLIN REG 1unit/0.01ml Soln (100units/ml) SC SCH (17:00)
[2023-06-07] MEDS: ACCU-CHEK COMFORT CURVE STRIP VI SCH (17:28)
[2023-06-07] MEDS: TAMSULOSIN HYDROCHLORIDE 0.4 MG CAP PO SCH (18:16)
[2023-06-07] MEDS: TURMERIC 1000 MG PO SCH (21:22)
[2023-06-07] MEDS: METOPROLOL TARTRATE 25 MG TAB PO SCH (21:32)
[2023-06-07] MEDS: ATORVASTATIN 20 MG TAB PO SCH (21:32)
[2023-06-08 05:33] LABS: Basophils # (auto) 0 10 ^3/uL (0-0.2); Basophils % (auto) 0.4 % (0.0-2.0); Eosinophils # (auto) 0.1 10 ^3/uL (0-0.8); Eosinophils % (auto) 1.4 % (0.0-7.0); Hematocrit 49.5 % (41.0-53.0); Hemoglobin 16.8 g/dL (13.5-17.5); Lymphocytes # (auto) 1.3 10 ^3/uL (0.4-5.4); Lymphocytes % (auto) 15.8 % (10.0-50.0); Mean Corpuscular Hemoglobin 33.7 pg (28.0-32.0); Mean Corpuscular Volume 99.1 fL (80.0-100.0); Monocytes % (auto) 12.8 % (0.0-12.0); Neutrophils # (auto) 5.5 10 ^3/uL (1.6-8.6); Neutrophils % (auto) 69.6 % (37.0-80.0); Nucleated Red Blood Cells % 0.3 %; Red Cell Distribution Width 13.5 % (11.8-14.3); White Blood Cell 7.9 10^3/uL (4.4-10.8)
[2023-06-08 05:44] LABS: Alanine Aminotransferase 18 U/L (7-40); Albumin 3.9 g/dL (3.2-4.8); Alkaline Phosphatase 85 U/L (46-116); Anion Gap 7 (5-15); Aspartate Aminotransferase 18 U/L (13-40); BUN/Creatinine Ratio 13.3 (10.0-20.0); Blood Urea Nitrogen 11 mg/dL (9-23); Calcium 9.3 mg/dL (8.5-10.1); Carbon Dioxide 26 mmol/L (20-30); Chloride 105 mmol/L (98-107); Glucose 107 mg/dL (74-106); Potassium 3.7 mmol/L (3.5-5.1); Sodium 138 mmol/L (136-145)
[2023-06-08 05:45] LABS: Bilirubin, Total 1.7 mg/dL (0.2-1.0); Total Protein 6.5 g/dL (5.7-8.2)
[2023-06-08 07:30] VITALS: PULSE 95; RESP 18; O2SAT 95
[2023-06-08] MEDS: MAGNESIUM CHLORIDE PO SCH (10:00)
[2023-06-08] MEDS: ASPirin 81 mg TAB PO SCH (10:19)
[2023-06-08] MEDS: FLORASTOR (S. BOULARDII) 250 MG CAP PO SCH (10:22)
[2023-06-08] MEDS: CHOLECALCIFEROL (VITD3) 1,000UNIT=25mCg TAB PO SCH (10:22)
[2023-06-08] MEDS: CYANOCOBALAMIN 500 MCG TAB PO SCH (10:23)
[2023-06-08] MEDS: LEVOTHYROXINE SODIUM 25 MCG TAB PO SCH (10:23)
[2023-06-08] MEDS: ENOXAPARIN SOD 40 MG/0.4 ML SYRINGE SC SCH (14:43)
[2023-06-08 19:40] VITALS: PULSE 78; RESP 14; O2SAT 94
[2023-06-08] MEDS: CYANOCOBALAMIN (B-12) 1000 MCG/1 ML VIAL IM ONE (22:12)
[2023-06-09 08:42] VITALS: PULSE 78
[2023-06-09] MEDS: CYANOCOBALAMIN 500 MCG TAB PO SCH (09:44)
[2023-06-09] MEDS: HALOPERIDOL LACTATE 5 MG/ML INJ VIAL IM ONE (11:25)
[2023-06-09 19:30] VITALS: PULSE 101; RESP 17; O2SAT 95
[2023-06-10 05:03] LABS: Basophils # (auto) 0.1 10 ^3/uL (0-0.2); Basophils % (auto) 0.6 % (0.0-2.0); Eosinophils # (auto) 0.1 10 ^3/uL (0-0.8); Eosinophils % (auto) 1.5 % (0.0-7.0); Hematocrit 51.5 % (41.0-53.0); Hemoglobin 17.5 g/dL (13.5-17.5); Lymphocytes # (auto) 1.6 10 ^3/uL (0.4-5.4); Lymphocytes % (auto) 16.6 % (10.0-50.0); Mean Corpuscular Hemoglobin 33.8 pg (28.0-32.0); Mean Corpuscular Volume 99.5 fL (80.0-100.0); Monocytes # (auto) 1.5 10 ^3/uL (0-1.3); Monocytes % (auto) 15.4 % (0.0-12.0); Neutrophils # (auto) 6.4 10 ^3/uL (1.6-8.6); Neutrophils % (auto) 65.9 % (37.0-80.0); Nucleated Red Blood Cells % 0.2 %; Red Blood Cells 5.17 10^6/uL (4.5-5.90); Red Cell Distribution Width 13.1 % (11.8-14.3); White Blood Cell 9.7 10^3/uL (4.4-10.8)
[2023-06-10 05:21] LABS: Anion Gap 8 (5-15); Carbon Dioxide 26 mmol/L (20-30); Chloride 105 mmol/L (98-107); Potassium 3.8 mmol/L (3.5-5.1); Sodium 139 mmol/L (136-145)
[2023-06-10 05:23] LABS: Calcium 9.5 mg/dL (8.5-10.1)
[2023-06-10 05:27] LABS: BUN/Creatinine Ratio 19.1 (10.0-20.0); Blood Urea Nitrogen 17 mg/dL (9-23); Glucose 102 mg/dL (74-106)
[2023-06-10 07:35] VITALS: O2SAT 93
[2023-06-10] MEDS: HALOPERIDOL LACTATE 5 MG/ML INJ VIAL IM PRN (15:49)
[2023-06-10] MEDS: Ensure HIGH Protein Chocolate 8oz Bottle PO SCH (18:00)
[2023-06-10 19:30] VITALS: PULSE 89; RESP 20; O2SAT 90
[2023-06-10 23:38] VITALS: BP_SYST 136; BP_SYST 137; BP_DIAS 77; PULSE 87; PULSE 98; RESP 18; TEMP 98.1; O2SAT 92; O2SAT 94
[2023-06-11] VITALS (8 sets, daily range): BP systolic 114–140; BP diastolic 65–80; PULSE 72–101; RESP 16–18; TEMP 36.6; O2SAT 94–98
[2023-06-12] VITALS (7 sets, daily range): BP systolic 113–137; BP diastolic 69–89; PULSE 71–110; RESP 18; TEMP 97.8–98.6; O2SAT 91–98
== END 2023-06-12 20:04 | disposition home health service (06) | DRG 92 ==
LOC: ER 11:52 → TELE 14:53 → TELE-WESTW 06-10 21:57
PROVIDERS: ADMIT Nurse Practitioner Family; ATTEND Internal Medicine
DX: G92.8 Other toxic encephalopathy (principal); G91.2 (Idiopathic) normal pressure hydrocephalus; I65.21 Occlusion and stenosis of right carotid artery; I10 Essential (primary) hypertension; E11.9 Type 2 diabetes mellitus without complications; E03.9 Hypothyroidism, unspecified; E78.5 Hyperlipidemia, unspecified; I25.10 Atherosclerotic heart disease of native coronary artery without angina pectoris; R32 Unspecified urinary incontinence; R26.89 Other abnormalities of gait and mobility; E53.8 Deficiency of other specified B group vitamins; H91.90 Unspecified hearing loss, unspecified ear; F03.90 Unspecified dementia, unspecified severity, without behavioral disturbance, psychotic disturbance, mood disturbance, and anxiety; F17.200 Nicotine dependence, unspecified, uncomplicated; Z98.61 Coronary angioplasty status; Z80.41 Family history of malignant neoplasm of ovary; Z80.0 Family history of malignant neoplasm of digestive organs; Z83.3 Family history of diabetes mellitus; Z86.73 Personal history of transient ischemic attack (TIA), and cerebral infarction without residual deficits
CPT/HCPCS: 36415; 70450; 70551; 71045; 80048; 80053; 80061; 80320; 81001; 82607; 82962; 83036; 83605; 83735; 84443; 85025; 85610; 85730; 87040; 93005; 93306; 93886; 96360; 97116; 97163; 97530; G0378; J1815

== ENCOUNTER 2023-06-16 11:50 | Inpatient (IN) | payer MEDICARE, MEDICAID ==
[~2023-06-16] VITALS: Ht 160 cm; Wt 72.1 kg
[~2023-06-16 11:50] MED LIST changes: -ATOR40TA52 PO; -LACTCAP35 PO; +LEVO25TA2 PO; -LEVO25TA49 PO; -LEVO500T31 PO; -MET25T PO; -OMEG-20 PO; -TAMS-35 PO; -TURM500C3 PO
[2023-06-16 12:51] LABS: Basophils # (auto) 0 10 ^3/uL (0-0.2); Eosinophils # (auto) 0.2 10 ^3/uL (0-0.8); Hematocrit 48.3 % (41.0-53.0); Monocytes # (auto) 1.1 10 ^3/uL (0-1.3); Monocytes % (auto) 15.1 % (0.0-12.0); Nucleated Red Blood Cells % 0.1 %
[2023-06-16 12:53] LABS: Basophils % (auto) 0.7 % (0.0-2.0); Eosinophils % (auto) 2.8 % (0.0-7.0); Hemoglobin 16.5 g/dL (13.5-17.5); Lymphocytes # (auto) 1.1 10 ^3/uL (0.4-5.4); Lymphocytes % (auto) 16.4 % (10.0-50.0); Mean Corpuscular Hemoglobin 34.2 pg (28.0-32.0); Mean Corpuscular Hgb Conc. 34.2 g/dL (32.0-36.0); Mean Corpuscular Volume 99.9 fL (80.0-100.0); Neutrophils # (auto) 4.5 10 ^3/uL (1.6-8.6); Red Blood Cells 4.83 10^6/uL (4.5-5.90); Red Cell Distribution Width 13.2 % (11.8-14.3)
[2023-06-16 13:07] LABS: Alanine Aminotransferase 33 U/L (7-40); Albumin 3.9 g/dL (3.2-4.8); Alkaline Phosphatase 85 U/L (46-116); Anion Gap 3 (5-15); Aspartate Aminotransferase 21 U/L (13-40); BUN/Creatinine Ratio 18.6 (10.0-20.0); Bilirubin, Total 1.1 mg/dL (0.2-1.0); Blood Urea Nitrogen 19 mg/dL (9-23); Calcium 9.2 mg/dL (8.5-10.1); Carbon Dioxide 33 mmol/L (20-30); Chloride 105 mmol/L (98-107); Glucose 131 mg/dL (74-106); Sodium 141 mmol/L (136-145); Total Protein 6.1 g/dL (5.7-8.2)
[2023-06-16 14:43] VITALS: PULSE 95; RESP 20; O2SAT 95
[2023-06-16 14:46] LABS: Urine Blood 3+ /uL (Negative); Urine Clarity Clear (Clear); Urine Color Yellow (Yellow); Urine Protein, UAD TRACE (Negative); Urine Specific Gravity 1.018 (1.001-1.035); Urine Urobilinogen Normal (Negative); Urine pH 6.5 (5.0-8.0)
[2023-06-16] MEDS: cefTRIAXone 1GM/50ML D5W 50 ML IV ONE (17:13)
[2023-06-16] MEDS ORDERED: ACETAMINOPHEN 325 MG TAB PO PRN (18:30)
[2023-06-16] MEDS ORDERED: ONDANSETRON HCL 4 MG/2 ML VIAL IV PRN (18:30)
[2023-06-16] MEDS ORDERED: NITROGLYCERIN 0.4 MG SL TAB SL PRN (18:30)
[2023-06-16] MEDS: LABETALOL HCL 5 MG/ML 4ML SYRINGE IV ONE (18:30)
[2023-06-16] MEDS ORDERED: MORPHINE SULFATE INJ 2 MG/ml SYRG IV PRN (18:30)
[2023-06-16] MEDS ORDERED: TAMS0.4C36 PO (18:37)
[2023-06-16] MEDS ORDERED: METO25TA93 PO (18:37)
[2023-06-16 19:36] VITALS: PULSE 103; RESP 18; O2SAT 94
[2023-06-16] MEDS: METOPROLOL SUCCINATE XL 50 MG TAB PO SCH (21:42)
[2023-06-17 06:14] LABS: Basophils # (auto) 0 10 ^3/uL (0-0.2); Basophils % (auto) 0.4 % (0.0-2.0); Eosinophils # (auto) 0.2 10 ^3/uL (0-0.8); Eosinophils % (auto) 1.9 % (0.0-7.0); Hematocrit 50.2 % (41.0-53.0); Hemoglobin 17.2 g/dL (13.5-17.5); Lymphocytes # (auto) 1.3 10 ^3/uL (0.4-5.4); Lymphocytes % (auto) 15.3 % (10.0-50.0); Mean Corpuscular Hemoglobin 33.9 pg (28.0-32.0); Mean Corpuscular Hgb Conc. 34.1 g/dL (32.0-36.0); Mean Corpuscular Volume 99.2 fL (80.0-100.0); Monocytes # (auto) 1.4 10 ^3/uL (0-1.3); Neutrophils # (auto) 5.7 10 ^3/uL (1.6-8.6); Neutrophils % (auto) 66.4 % (37.0-80.0); Nucleated Red Blood Cells % 0.1 %; Red Blood Cells 5.06 10^6/uL (4.5-5.90); Red Cell Distribution Width 13.1 % (11.8-14.3); White Blood Cell 8.5 10^3/uL (4.4-10.8)
[2023-06-17 06:30] LABS: Alanine Aminotransferase 25 U/L (7-40); Anion Gap 7 (5-15); BUN/Creatinine Ratio 11.2 (10.0-20.0); Blood Urea Nitrogen 10 mg/dL (9-23); Calcium 9.2 mg/dL (8.5-10.1); Carbon Dioxide 28 mmol/L (20-30); Chloride 103 mmol/L (98-107); Glucose 104 mg/dL (74-106); Potassium 3.7 mmol/L (3.5-5.1); Sodium 138 mmol/L (136-145)
[2023-06-17 06:31] LABS: Aspartate Aminotransferase 22 U/L (13-40); Bilirubin, Total 1.3 mg/dL (0.2-1.0)
[2023-06-17 06:37] LABS: Alkaline Phosphatase 82 U/L (46-116)
[2023-06-17] MEDS: LEVOTHYROXINE SODIUM 25 MCG TAB PO SCH (07:45)
[2023-06-17 07:47] VITALS: PULSE 75; RESP 16
[2023-06-17] MEDS: cefTRIAXone 1GM/50ML D5W 50 ML IV SCH (09:00)
[2023-06-17] MEDS: CYANOCOBALAMIN 500 MCG TAB PO ONE (09:45)
[2023-06-17] MEDS: CYANOCOBALAMIN 500 MCG TAB PO SCH (10:13)
[2023-06-17] MEDS: ASPirin 81 mg TAB PO SCH (10:14)
[2023-06-17] MEDS: CHOLECALCIFEROL (VITD3) 1,000UNIT=25mCg TAB PO SCH (10:14)
[2023-06-17] MEDS: MAGNESIUM CHLORIDE PO SCH (10:25)
[2023-06-17] MEDS: HALOPERIDOL LACTATE 5 MG/ML INJ VIAL IM ONE (10:52)
[2023-06-17] MEDS: LORazepam MDV 2MG/ML 10 ML IV ONE (11:12)
[2023-06-17] MEDS: LORazepam 2MG/ML-1ML VIAL IV ONE (11:42)
[2023-06-17] MEDS: SODIUM CHLORIDE 0.9% 1,000 ML IV ONE (14:00)
[2023-06-17] MEDS: TAMSULOSIN HYDROCHLORIDE 0.4 MG CAP PO SCH (18:00)
[2023-06-17 19:50] VITALS: PULSE 87; RESP 18; O2SAT 95
[2023-06-17] MEDS: METOPROLOL TARTRATE 25 MG TAB PO SCH (22:45)
[2023-06-18 07:30] VITALS: PULSE 75; RESP 21; O2SAT 93
[2023-06-18] MEDS: hydrALAZINE HCL 20 MG/ML VL IV PRN (17:14)
[2023-06-18 17:55] VITALS: BP 139/78; PULSE 85; RESP 18; TEMP 98.2; O2SAT 94
[2023-06-18 20:00] VITALS: PULSE 95; RESP 18; O2SAT 95
[2023-06-18 21:00] VITALS: BP 125/64; PULSE 88; RESP 18; TEMP 97.6; O2SAT 95
[2023-06-19 05:00] VITALS: BP 125/82; PULSE 111; RESP 19; TEMP 98.5; O2SAT 94
[2023-06-19 08:00] VITALS: PULSE 95; RESP 18; O2SAT 95
[2023-06-19 09:00] VITALS: BP 109/80; PULSE 82; RESP 21; O2SAT 93
[2023-06-19] MEDS: LORazepam 2MG/ML-1ML VIAL IV PRN (16:50)
[2023-06-19 17:05] VITALS: BP 124/79; PULSE 85; RESP 21; TEMP 98.7; O2SAT 97
[2023-06-19 20:00] VITALS: PULSE 91
[2023-06-19 21:00] VITALS: BP 132/78; PULSE 91; RESP 17; TEMP 97.7; O2SAT 94
[2023-06-20 01:00] VITALS: BP 110/62; PULSE 80; RESP 16; TEMP 97.9; O2SAT 92
[2023-06-20 08:17] VITALS: PULSE 89
[2023-06-20 09:00] VITALS: BP 108/56; PULSE 88; RESP 17; TEMP 97.7; O2SAT 93
[2023-06-20 17:28] VITALS: BP 131/72; PULSE 98; RESP 18; TEMP 98; O2SAT 94
[2023-06-20 20:10] VITALS: PULSE 99; RESP 17
[2023-06-20 21:01] VITALS: BP 105/58; PULSE 99; RESP 18; O2SAT 94
[2023-06-21] VITALS (8 sets, daily range): BP systolic 109–125; BP diastolic 57–77; PULSE 69–101; RESP 17–20; TEMP 97.7–98; O2SAT 92–96
[2023-06-21] MEDS: DOCUSATE SOD 100 MG CAP PO PRN (06:55)
[2023-06-21] MEDS: HALOPERIDOL LACTATE 5 MG/ML INJ VIAL IM PRN (19:57)
[2023-06-22 05:22] VITALS: BP 125/75; PULSE 80; RESP 16; TEMP 98.7; O2SAT 94
[2023-06-22 08:07] VITALS: PULSE 99; RESP 17
[2023-06-22 08:39] VITALS: BP 123/70; PULSE 80; RESP 20; TEMP 97.5; O2SAT 95
[2023-06-22 13:00] VITALS: BP 97/57; PULSE 74; RESP 20; TEMP 97.7; O2SAT 94
[2023-06-22 14:07] VITALS: BP 120/59; PULSE 74; RESP 24; TEMP 98.6; O2SAT 99
== END 2023-06-22 15:00 | disposition hospice, home (50) | DRG 689 ==
LOC: ER 11:50 → EDBD 11:50 → OVERFLOW 18:37 → WEST WING 18:37
PROVIDERS: ADMIT Nurse Practitioner Family; ATTEND Internal Medicine
DX: N13.6 Pyonephrosis (principal); G93.41 Metabolic encephalopathy; G91.2 (Idiopathic) normal pressure hydrocephalus; E03.9 Hypothyroidism, unspecified; E78.5 Hyperlipidemia, unspecified; E11.22 Type 2 diabetes mellitus with diabetic chronic kidney disease; E86.9 Volume depletion, unspecified; F03.90 Unspecified dementia, unspecified severity, without behavioral disturbance, psychotic disturbance, mood disturbance, and anxiety; I12.9 Hypertensive chronic kidney disease with stage 1 through stage 4 chronic kidney disease, or unspecified chronic kidney disease; I25.10 Atherosclerotic heart disease of native coronary artery without angina pectoris; Z51.5 Encounter for palliative care; N18.9 Chronic kidney disease, unspecified; E53.8 Deficiency of other specified B group vitamins; Y84.6 Urinary catheterization as the cause of abnormal reaction of the patient, or of later complication, without mention of misadventure at the time of the procedure; Z95.5 Presence of coronary angioplasty implant and graft; Z87.440 Personal history of urinary (tract) infections; Z86.73 Personal history of transient ischemic attack (TIA), and cerebral infarction without residual deficits; N40.1 Benign prostatic hyperplasia with lower urinary tract symptoms
CPT/HCPCS: 36415; 70450; 80053; 81003; 84443; 84484; 85025; 87081; 87086; 93005; 96365; 97110; 97116; 97163; 97530; G0378